=== PATIENT | female | born 1940 | race Caucasian/White ===

== ENCOUNTER 2019-01-13 10:30 | Inpatient (IN) | payer MEDICARE, BC ==
[2019-01-13 10:52] VITALS: BMI 36.9
[2019-01-13 11:52] LABS: Hemoglobin 12.3 g/dL (12.0-16.0); Mean Corpuscular HGB CONC 33.4 g/dL (32.0-36.0); Mean Platelet Volume 7.5 fL (7.4-10.4); Platelet Count 142 thou/uL (130-400); Red Blood Cell (RBC) Count 3.83 mill/uL (4.20-5.40); White Blood Cell (WBC) Count 6.1 thou/uL (4.8-10.8)
[2019-01-13 12:15] LABS: Anion Gap 11 mmol/L (10-20); BUN (Urea Nitrogen) 28 mg/dL (9.8-20.1); Calc. Creatinine Clearance 0 mL/min (70-130); Calcium 9.6 mg/dL (7.8-10.44); Carbon Dioxide 27 mmol/L (23-31); Chloride 104 mmol/L (98-107); Estimated GFR-MDRD 66; Glucose 161 mg/dL (83-110); Potassium 4.2 mmol/L (3.5-5.1); Sodium 138 mmol/L (136-145)
[2019-01-14] MEDS ORDERED: Albumin 5% 500 ML ONE (06:15)
[2019-01-14] MEDS ORDERED: Midazolam HCl 5 mg/5 ml Vial ONE (06:35)
[2019-01-14] MEDS ORDERED: Midazolam HCl 2 mg/2 ml Vial ONE (06:35)
[2019-01-14] MEDS ORDERED: Fentanyl 100 MCG/2 ML VIAL ONE (06:35)
[2019-01-14] MEDS ORDERED: Dexmedetomidine 200 MCG/2 ML VIAL ONE (06:35)
[2019-01-14] MEDS ORDERED: Vecuronium 10 MG VIAL ONE ×2 (06:35→13:02)
[2019-01-14] MEDS ORDERED: Heparin 10,000 UNITS/1 ML VIAL 30,000 UNITS in Sodium Chloride 0.9% 1,000 ML FS SCH (06:45)
[2019-01-14] MEDS ORDERED: Meclizine HCl 12.5 MG TAB PO PRN (07:35)
[2019-01-14] MEDS ORDERED: Indomethacin 25 mg Capsule PO PRN (07:35)
[2019-01-14] MEDS ORDERED: niCARdipine 25 MG in Sodium Chloride 0.9% 250 ML 250 ML IVPB PRN (07:36)
[2019-01-14] MEDS ORDERED: Morphine 2 MG/ML SYRINGE SLOW IVP PRN (07:36)
[2019-01-14] MEDS ORDERED: Acetaminophen 325 MG TAB PO PRN (07:36)
[2019-01-14] MEDS ORDERED: Promethazine HCl 25 MG/ML VIAL IM PRN (07:36)
[2019-01-14] MEDS ORDERED: Mag-Al 1200 mg/1200 mg/30 ML UDCUP PO PRN (07:36)
[2019-01-14] MEDS ORDERED: Fentanyl 100 MCG/2 ML VIAL SLOW IVP PRN (07:36)
[2019-01-14] MEDS ORDERED: Hetastarch 6% 500 ML 500 ML IVPB PRN (07:36)
[2019-01-14] MEDS ORDERED: Post-Op Insulin Drip Protocol IVPB ONE (07:36)
[2019-01-14] MEDS ORDERED: Ondansetron PF 4 MG/2 ML Vial IVP PRN (07:36)
[2019-01-14] MEDS ORDERED: hydrALAZINE 20 MG/ML VIAL SLOW IVP PRN (07:36)
[2019-01-14] MEDS ORDERED: Bisacodyl 5 MG TAB PO PRN (07:36)
[2019-01-14] MEDS ORDERED: Guaifenesin DM 100-10/5 ML UDCUP PO PRN (07:36)
[2019-01-14] MEDS ORDERED: Nitroglycerin 50 MG/250 ML BOT 250 ML IVPB PRN (07:36)
[2019-01-14] MEDS ORDERED: Norepinephrine 8 MG in Sodium Chloride 0.9% 250 ML 242 ML IVPB PRN (07:36)
[2019-01-14] MEDS ORDERED: Bisacodyl 10 MG SUPP PR PRN (07:36)
[2019-01-14] MEDS ORDERED: Insulin Regular 300 UNITS/3 ML VIAL ONE (08:13)
[2019-01-14] MEDS ORDERED: Dextrose 5% in Water 1,000 ML IV PRN (08:17)
[2019-01-14] MEDS ORDERED: Dextrose 50% Abboject 50 ML SYRINGE SLOW IVP PRN (08:17)
[2019-01-14] MEDS ORDERED: HUMULIN R 100 UNITS in Sodium Chloride 0.9% 100 ML IVPB SCH (08:17)
[2019-01-14] MEDS: Calcium Carbonate + Vit D 1 TAB PO SCH ×2 (11:08→19:53)
[2019-01-14] MEDS: Aspirin Chewable 81 MG TAB PO SCH (11:08)
[2019-01-14] MEDS: Brimonidine Tartrate 0.2% Ophth Soln 5 ml Bottle EA EYE SCH ×2 (11:08→19:55)
[2019-01-14] MEDS: Allopurinol 100 MG TAB PO SCH (11:08)
[2019-01-14] MEDS: Docusate 100 MG CAP PO SCH ×2 (11:09→19:54)
[2019-01-14] MEDS: Multivitamin W/ Minerals 1 TAB PO SCH (11:09)
[2019-01-14] MEDS: Timolol 0.5% Ophth Soln 5 ml Bottle EA EYE SCH ×2 (11:10→19:55)
[2019-01-14] MEDS ORDERED: CEFAZOLIN 1 GM VIAL ONE (12:18)
[2019-01-14] MEDS ORDERED: Heparin 30,000 units/30 ml VIAL ONE (13:02)
[2019-01-14] MEDS ORDERED: Mannitol 12.5 GM/50 ML ONE (13:02)
[2019-01-14] MEDS ORDERED: Calcium Chloride 1 GM/10 ML Abboject SYRINGE ONE (13:02)
[2019-01-14] MEDS ORDERED: DOPamine 400 MG/10 ML VIAL ONE (13:02)
[2019-01-14] MEDS ORDERED: Aminocaproic Acid 5 GM/20 ML VIAL ONE (13:02)
[2019-01-14] MEDS ORDERED: Magnesium 5 GM/10 ML VIAL ONE (13:02)
[2019-01-14] MEDS ORDERED: Protamine Sulfate 250 MG/25 ML VIAL ONE (13:02)
[2019-01-14] MEDS ORDERED: Ondansetron PF 4 MG/2 ML Vial ONE (13:02)
[2019-01-14] MEDS ORDERED: Potassium Chloride 60 MEQ/30 ML VIAL ONE (13:02)
[2019-01-14] MEDS ORDERED: Norepinephrine 4 MG/4 ML VIAL ONE (13:02)
[2019-01-14] MEDS ORDERED: PHENYLEPHRINE-NS 100 MCG/ML 10 ML SYRINGE ONE (13:02)
[2019-01-14] MEDS ORDERED: Sodium Bicarb 50 MEQ/50 ML VIAL ONE (13:02)
[2019-01-14] MEDS ORDERED: ePHEDrine 50 MG/ML VIAL ONE (13:02)
[2019-01-14] MEDS ORDERED: Thrombin 5000 UNITS/5 ML VIAL ONE (13:02)
[2019-01-14] MEDS ORDERED: Papaverine 60 MG/2 ML VIAL ONE (13:02)
[2019-01-14] MEDS ORDERED: Heparin 5,000 UNITS/ML VIAL ONE (13:02)
[2019-01-14] MEDS ORDERED: Dexamethasone 20 MG/5 ML VIAL ONE (13:02)
[2019-01-14] MEDS ORDERED: Lidocaine 2% PF 100 mg/5 ml Syringe ONE (13:02)
[2019-01-14] MEDS ORDERED: Nitroglycerin 50 MG/250 ML BOT ONE (13:02)
[2019-01-14] MEDS ORDERED: Cardioplegic Soln 1,000 ML BAG ONE (13:02)
[2019-01-14] MEDS ORDERED: Amiodarone 150 MG/3 ML VIAL ONE (13:38)
[2019-01-14 15:22] LABS: Actual Bicarbonate (HCO3a) 19.6 mEq/L (22-28); Base Excess (BEa) -5.6 mEq/L (-2.0 to +3.0); CO2 Tension 37.1 mmHg (35.0-45.0); Calcium, Ionized 1.06 mmol/L (1.12-1.30); Carboxyhemoglobin (COHb) 0.3 gm% (0.0-3.0); Hemoglobin (Hb) 9.8 g/dL (12.0-16.0); O2 Tension (PaO2) 163.9 mmHg (> 70.0); Potassium - ABG Lab 3.63 mmol/L (3.70-5.30); pH, Arterial 7.34 (7.35-7.45)
[2019-01-14 15:24] LABS: Puncture Site LINE
[2019-01-14 15:25] LABS: ALV-art Gradient 217.525 (0-20)
[2019-01-14 15:43] LABS: Hemoglobin 9.6 g/dL (12.0-16.0)
--- NOTE | 2019-01-14 15:44 | RAD ---
XR Chest 1 View Portable HISTORY: Respiratory failure. Post op open heart surgery COMPARISON: Previous day FINDINGS: Interval changes of median sternotomy are seen. There is an endotracheal tube with tip just above the level of the anitha. A left subclavian central line is seen with tip in the projection of the SVC. Mediastinal drain and left-sided chest tubes are present. No pneumothoraces or large effu sions are seen.
[2019-01-14 15:52] LABS: INR-International Normal Ratio 1.5; PTT 33.6 SEC (22.9-36.1); Prothrombin Time 18.2 SEC (12.0-14.7)
[2019-01-14 15:57] LABS: Potassium 3.7 mmol/L (3.5-5.1)
[2019-01-14] MEDS ORDERED: Amiodarone 450 MG, Admixture Fee 1 EACH in Dextrose 5% in Water 250 ML IVPB SCH (16:00)
[2019-01-14] MEDS: Sodium Chloride 0.9% 1,000 ML IV SCH ×2 (16:11→22:13)
[2019-01-14 17:01] LABS: Anion Gap 12 mmol/L (10-20); BUN (Urea Nitrogen) 22 mg/dL (9.8-20.1); Calc. Creatinine Clearance 110 mL/min (70-130); Calcium 7.3 mg/dL (7.8-10.44); Carbon Dioxide 19 mmol/L (23-31); Chloride 115 mmol/L (98-107); Estimated GFR-MDRD 85; Glucose 116 mg/dL (83-110); Potassium 3.7 mmol/L (3.5-5.1); Sodium 142 mmol/L (136-145)
[2019-01-14 17:31] LABS: Actual Bicarbonate (HCO3a) 19.4 mEq/L (22-28); Base Excess (BEa) -4.8 mEq/L (-2.0 to +3.0); Calcium, Ionized 1.06 mmol/L (1.12-1.30); Carboxyhemoglobin (COHb) 0.3 gm% (0.0-3.0); O2 Tension (PaO2) 122.6 mmHg (> 70.0); Potassium - ABG Lab 4.05 mmol/L (3.70-5.30); pH, Arterial 7.39 (7.35-7.45)
[2019-01-14 17:38] LABS: Puncture Site LINE
[2019-01-14] MEDS: Fentanyl 100 MCG/2 ML VIAL SLOW IVP PRN ×2 (17:51→21:27)
[2019-01-14] MEDS: Ketorolac Tromethamine 30 MG/ML VIAL IVP SCH (19:52)
[2019-01-14] MEDS: HYDROcodone/Acetaminophen 5/325 mg Tablet PO PRN (19:53)
[2019-01-14] MEDS: Insulin Regular 300 UNITS/3 ML VIAL SC PRN (20:19)
[2019-01-14] MEDS: Potassium Chloride 20 MEQ/100 ML PREMIX BAG IVPB PRN (20:19)
--- NOTE | 2019-01-14 21:42 | OP ---
DATE OF PROCEDURE: 01/14/2019 PROCEDURES PERFORMED: Coronary artery bypass grafting x5, left internal mammary artery to the LAD, separate reverse greater saphenous vein grafts from the aorta to the first obtuse marginal and from aorta to the diagonal, and sequential reverse greater saphenous vein graft from aorta to the distal RCA to the PDA. PREOPERATIVE DIAGNOSIS: Coronary artery disease. POSTOPERATIVE DIAGNOSIS: Coronary artery disease. ANESTHESIA: General endotracheal anesthesia. INDICATIONS: The patient is a 78-year-old diabetic woman with a two or three month history of some mild dyspnea on exertion and in retrospect, she has had somewhat easy fatigability for about a year. Stress testing showed apical and lateral ischemia, but good LV function. Cardiac catheterization showed severe 3-vessel coronary artery disease and she is now taken to the operating room for revascularization. FINDINGS: Pump time 129 minutes. Cross-clamp time 73 minutes. Good quality TETE with excellent flow. Good quality saphenous vein. The vein from the thigh and proximal calf was slightly large, but of good quality. At mid calf, it became slightly small and slightly thin walled. The LAD was about 1.5 mm vessel as was the diagonal. The OM1 was 1.5 to 2 mm. The PDA was about 1.5 mm. The RCA diffuse disease that was about a 3 mm vessel. NARRATIVE REPORT: After informed consent was obtained, the patient was taken to the operating room and placed in supine position on the operating table. After the induction of general anesthesia, the patient's greater saphenous vein was ultrasonographically mapped and marked. It was difficult to follow much below the knee. The patient's left upper chest was prepped and draped in sterile fashion and she was placed in Trendelenburg. A left subclavian central line was placed by Seldinger technique. All 3 ports aspirated and flushed easily. The line was secured. The patient's torso groins, lower extremities and left upper extremity were prepped and draped in sterile fashion. The saphenous vein was exposed just above the left knee and then endoscopically harvested from there up to the groin and down from mid to distal calf. There was bleeding from one of the large proximal side branches anteriorly near the groin that obscured adequate visualization for complete harvesting in the thigh. An incision was made parallel to the left groin crease using a scalpel and electrocautery to expose the vein. It was ligated and divided near the saphenofemoral junction and bleeding side branch was identified and doubly clipped. Even after attempting to evacuate blood from the wound, it was not feasible to adequately expose the entire length of the vein through those two incisions. The port site was extended a few centimeters proximally to facilitate exposure to allow for ligation and division of some branches. It could not be identified during the endoscopic harvest because of blood in the dissection bed. Courtland was then taken down to the calf. Likewise, bleeding into the wound prevented adequate visualization of the vein for distal transection point that was exposed through a small incision and ligated and divided. Side branch just below the knee required open division in order to identify. The vein was prepared for use as a graft and those harvest sites were closed in layers of subcutaneous and subcuticular Vicryl. A median sternotomy was performed. An attempt was made to do an extrapleural exposure with the pleura was quite thin and it readily became apparent that would need to be abandoned. The pleura was opened widely and the left TETE was mobilized as a skeletonized in-situ graft from the level of the xiphoid to just proximal to the subclavian vein. Much of the mammary is quite tortuous and rather large. The patient was heparinized and the mammary ligated and divided distally and papaverine solution was instilled intraluminally and the mammary bed was inspected for hemostasis. TETE retractor was placed in a Grant retractor. The pericardium was opened and marsupialized. The aorta was palpated and was soft. A double concentric pursestring of 2-0 Ethibond was placed in ascending aorta just beyond the pericardial reflection and a single pursestring was placed in the right atrial appendage. Aortic and venous cannulae were inserted and secured by their pursestrings. Cardiopulmonary bypass was instituted and the patient was systemically cooled. The heart was examined. The vessels to be bypassed were identified. A longitudinal slit was made in the pericardium anterior to the left phrenic nerve, through which the mammary could be passed. An aortic cross-clamp was applied and cardioplegia was administered through an aortic root needle while cardioplegia was infusing. A 36-Polish chest tube was placed in the left pleural space to bring it out through a separate incision and securing it to the skin with suture. When arrest been achieved, attention was turned to the distal right coronary system. The mid PDA beyond the palpable plaque was opened and reverse greater saphenous vein was anastomosed there end-to-side with running Prolene suture and the anastomosis tested by flushing cold saline down the graft. The right coronary was then opened just proximal to the crux and a corresponding venotomy was made in the PDA graft. A [id number] anastomosis was then constructed between the two and tested with cardioplegia. Separate end-to-side anastomoses of the vein to the OM1 and to the diagonal were then made. The mammary was then anastomosed to the LAD with running 7-0 Prolene and tacked to the epicardium. The aortic cross-clamp was placed with partial occluding clamp and few aortotomies remained in the ascending aorta with a scalpel and punch. The right coronary system graft was brought up along the AV groove and anastomosed to the more proximal aortotomy and that anastomosis marked with small hemoclip. The OM graft was anastomosed to the more distal aortotomy. Backbleeding from the RCA graft was used to allow for distention of the graft. Venotomy was made in the watson of the OM proximal anastomosis and the diagonal graft was anastomosed to it. A small hemoclip was used to karla those anastomoses. A posterior pericardial drain was brought out through a separate incision and secured with suture. Right atrial and right ventricular temporary epicardial pacing wires were placed. The patient was then easily from cardiopulmonary bypass. Aortic and venous cannulae were removed and the pursestring secured. Protamine was administered. When hemostasis was adequate, anterior mediastinal drain was placed. The mediastinal fat was tacked back together to cover up. They were in the proximal portions of the vein grafts and the inferior medial aspects. The pericardium was loosely tacked together to avoid excessive retraction of the pericardium. Cut surfaces of the sternum were treated with platelet-rich GPS and vancomycin paste. The sternum was reapproximated with #7 stainless steel wires. The soft tissues were irrigated and treated with platelet-poor GPS, #1 Vicryl was used to close the fascia over the wires, 2-0 Vicryl was used to reapproximate subcutaneous tissue, and 3-0 Vicryl subcuticular suture was used for the skin. Because of the patient's body habitus and need to extend the sternotomy incision through a rather generous intertriginous fold in order to expose the distal sternum, the skin closure was reinforced with running nylon. The wounds were dressed and the patient was taken to the intensive care unit in stable condition. Job ID: [id number]
[2019-01-15 00:03] LABS: Hemoglobin 9.2 g/dL (12.0-16.0)
[2019-01-15] MEDS: Insulin Regular 300 UNITS/3 ML VIAL SC PRN ×5 (00:09→22:05)
[2019-01-15 00:19] LABS: Potassium 4.3 mmol/L (3.5-5.1)
[2019-01-15] MEDS ORDERED: Amiodarone In Dextrose 200 ML IVPB SCH (00:45)
[2019-01-15] MEDS: Ketorolac Tromethamine 30 MG/ML VIAL IVP SCH ×3 (00:47→14:22)
[2019-01-15] MEDS: Fentanyl 100 MCG/2 ML VIAL SLOW IVP PRN ×2 (02:16→04:46)
--- NOTE | 2019-01-15 03:32 | CON ---
DATE OF CONSULTATION: 01/14/2019 HISTORY OF PRESENT ILLNESS: Nataliya Buckley is a pleasant 78-year-old female, who underwent coronary artery bypass grafting today. I was consulted because of her re-admission to critical care unit with mechanical ventilation. She had a wonderfully pleasant family at the bedside. She has never been hospitalized here before. I do not find a history and physical in the computer. She has no complaints. PAST MEDICAL HISTORY: Unremarkable other than a polypectomy from the past. PAST SURGICAL HISTORY: I reviewed the old computer database, and there are no records of procedures in the past. FAMILY HISTORY: Unremarkable. SOCIAL HISTORY: She is a nonsmoker and nondrinker per family. ALLERGIES: SHE HAS NO REPORTED ALLERGIES. REVIEW OF SYSTEMS: 10 point review of systems completed, not obtainable. PHYSICAL EXAMINATION: GENERAL: Nataliya Buckley is a pleasant 78-year-old female, who underwent coronary artery bypass grafting today VITAL SIGNS: Heart rate is in the 80s, blood pressure 138/72, and respiratory rate 24. HEAD: Unremarkable. NECK: Unremarkable. LUNGS: Clear. HEART: Regular rhythm. S1 and S2 are normal. ABDOMEN: Soft and nontender. EXTREMITIES: Without clubbing, cyanosis, or edema. LABORATORY DATA: White count 6.1. Yesterday, hemoglobin is 12.3. Today, hemoglobin is 9.6. Sodium 142, potassium 3.7, chloride 115, bicarb 19, BUN 22, creatinine 0.6, and glucose 116. Last blood gas; pH of 7.39, CO2 of 33, and PO2 of 122 on CPAP. IMPRESSION: Status post coronary artery bypass grafting. Postop chest x-ray shows no pulmonary edema. I would think she would wean per protocol. We will follow along with the other physicians caring for her. The ventilator has been adjusted. Job ID: [id number] Critical care time 30 minutes MTDD
[2019-01-15 04:59] LABS: Anion Gap 14 mmol/L (10-20); BUN (Urea Nitrogen) 25 mg/dL (9.8-20.1); Calc. Creatinine Clearance 93 mL/min (70-130); Carbon Dioxide 17 mmol/L (23-31); Chloride 115 mmol/L (98-107); Estimated GFR-MDRD 70; Glucose 114 mg/dL (83-110); Sodium 142 mmol/L (136-145)
[2019-01-15 05:08] LABS: #Lymphocytes 0.5 thou/uL (1.20-3.40); #Monocytes 0.7 thou/uL (0.11-0.59); #Neutrophils 6.3 thou/uL (1.40-6.50); %Eosinophils 0.2 % (0.0-10.0); %Lymphocytes 6.8 % (21.0-51.0); %Monocytes 9.8 % (0.0-10.0); %Neutrophils 83.2 % (42.0-75.0); Hemoglobin 8.5 g/dL (12.0-16.0); Mean Corpuscular HGB CONC 33.5 g/dL (32.0-36.0); Mean Corpuscular Hemoglobin 32.4 pg (27.0-31.0); Mean Corpuscular Volume 96.9 fL (78.0-98.0); Mean Platelet Volume 7.8 fL (7.4-10.4); Platelet Count 111 thou/uL (130-400); Platelet Morphology Comment Appears Decreased; RBC Distribution Width 12.3 % (11.5-14.5); Red Blood Cell (RBC) Count 2.63 mill/uL (4.20-5.40); White Blood Cell (WBC) Count 7.6 thou/uL (4.8-10.8)
[2019-01-15] MEDS: Potassium Chloride 20 MEQ/100 ML PREMIX BAG IVPB PRN (05:53)
[2019-01-15] MEDS ORDERED: Furosemide 40 MG/4 ML VIAL SLOW IVP SCH (06:00)
[2019-01-15] MEDS ORDERED: Labetalol HCl 100 MG/20 ML VIAL ONE (07:33)
[2019-01-15] MEDS: HYDROcodone/Acetaminophen 5/325 mg Tablet PO PRN ×4 (07:48→20:33)
[2019-01-15] MEDS: Iron Polysaccharides Complex 150 MG CAP PO SCH ×2 (08:42→19:43)
[2019-01-15] MEDS: Allopurinol 100 MG TAB PO SCH (08:45)
[2019-01-15] MEDS: Calcium Carbonate + Vit D 1 TAB PO SCH ×2 (08:45→20:34)
[2019-01-15] MEDS: Multivitamin W/ Minerals 1 TAB PO SCH (08:46)
[2019-01-15] MEDS: Docusate 100 MG CAP PO SCH ×2 (08:46→20:34)
[2019-01-15] MEDS: Aspirin Chewable 81 MG TAB PO SCH (08:46)
[2019-01-15] MEDS: Metoprolol Tartrate 25 MG TAB PO SCH ×2 (08:47→20:34)
[2019-01-15] MEDS: Brimonidine Tartrate 0.2% Ophth Soln 5 ml Bottle EA EYE SCH ×2 (08:49→20:42)
[2019-01-15] MEDS ORDERED: Amiodarone 200 MG TAB PO SCH (09:00)
[2019-01-15] MEDS: Timolol 0.5% Ophth Soln 5 ml Bottle EA EYE SCH ×2 (09:19→20:31)
--- NOTE | 2019-01-15 09:22 | PDOC.CPN ---
- Subjective Date: 01/15/19 Time: 09:22 Interval history: The pt seen and examined. No overnight events. No cardiac complaints. - Objective Allergies/Adverse Reactions: Allergies Allergy/AdvReac Type Severity Reaction Status Date / Time No Known Allergies Allergy Unverified 01/13/19 10:48 Visit Medications: Current Medications Acetaminophen (Tylenol) 650 mg PO Q6H PRN PRN Reason: Headache/Fever Or Mild Pain Hydrocodone Bitart/Acetaminophen ([place] 5/325) 1 tab PO Q4H PRN PRN Reason: Moderate Pain (4-6) Hydrocodone Bitart/Acetaminophen ([place] 5/325) 2 tab PO Q4H PRN PRN Reason: Severe Pain (7-10) Last Admin: 01/15/19 07:48 Dose: 2 tab Al Hydroxide/Mg Hydroxide (Maalox) 30 ml PO Q4H PRN PRN Reason: Indigestion Albuterol/Ipratropium (Duoneb) 3 ml NEB [id number] PRN PRN Reason: SHORTNESS OF BREATH Allopurinol (Zyloprim) 100 mg PO DAILY [facility] [place] Last Admin: 01/15/19 08:45 Dose: 100 mg Amiodarone HCl (Cordarone) 200 mg PO BID [facility] [place] Last Admin: 01/15/19 08:47 Dose: 200 mg Aspirin (Aspirin Chewable) 81 mg PO DAILY [facility] [place] Last Admin: 01/15/19 08:46 Dose: 81 mg Bisacodyl (Dulcolax) 10 mg PO Q12H PRN PRN Reason: Constipation Bisacodyl (Dulcolax) 10 mg OK Q12H PRN PRN Reason: Constipation Brimonidine Tartrate (Alphagan 0.2% Oph Soln) 1 drop EA EYE BID [facility] [place] Last Admin: 01/15/19 08:49 Dose: 1 drop Calcium/Vitamin D (Caltrate 600 + Vit D) 2 tab PO BID [facility] [place] Last Admin: 01/15/19 08:45 Dose: 2 tab Dextrose/Water (Dextrose 50%) 25 gm SLOW IVP PRN PRN PRN Reason: PER HYPOGLYCEMIC PROTOCOL Docusate Sodium (Colace) 100 mg PO BID [facility] [place] Last Admin: 01/15/19 08:46 Dose: 100 mg Fentanyl (Sublimaze) 25 mcg SLOW IVP Q2H PRN PRN Reason: Moderate Pain (4-6) Stop: 01/16/19 07:37 Fentanyl (Sublimaze) 50 mcg SLOW IVP Q2H PRN PRN Reason: Severe Pain (7-10) Stop: 01/16/19 07:37 Last Admin: 01/15/19 04:46 Dose: 50 mcg Furosemide (Lasix) 40 mg SLOW IVP 0600,1400 YENY Stop: 01/15/19 14:01 Last Admin: 01/15/19 08:41 Dose: 40 mg Glucagon (Glucagon) 1 mg SC PRN PRN PRN Reason: PER HYPOGLYCEMIC PROTOCOL Guaifenesin/Dextromethorphan (Robitussin Dm) 15 ml PO Q4H PRN PRN Reason: Cough Hydralazine HCl (Apresoline) 10 mg SLOW IVP Q6H PRN PRN Reason: To Maintain SBP< 140mmHG Norepinephrine Bitartrate 8 mg (/ Sodium Chloride) 250 mls @ 0 mls/hr IVPB PRN PRN; Protocol PRN Reason: To maintain SBP > 90 mmHG Nicardipine HCl 25 mg/ Sodium (Chloride) 260 mls @ 0 mls/hr IVPB INF PRN; Protocol PRN Reason: To Maintain SBP< 140mmHG Nitroglycerin/Dextrose (Nitroglycerin 50 Mg/250 Ml Bot) 250 mls @ 0 mls/hr IVPB PRN PRN; Protocol PRN Reason: To Maintain SBP< 140mmHG Sodium Chloride (Normal Saline 0.9%) 1,000 mls @ 75 mls/hr IV .[id number] [facility] [place] Last Admin: 01/14/19 22:13 Dose: Not Given Insulin Human Regular 100 (units/ Sodium Chloride) 101 mls @ 0 mls/hr IVPB INF YENY; Protocol Dextrose/Water (D5w) 1,000 mls @ 0 mls/hr IV INF PRN PRN Reason: PRN HYPOGLYCEMIC PROTOCOL Indomethacin (Indocin) 25 mg PO BID PRN PRN Reason: LEG PAIN Insulin Human Regular (Humulin R) 0 units SC Q4H PRN; Protocol PRN Reason: POST OP SLIDING SCALE Last Admin: 01/15/19 00:09 Dose: 2 unit Iron/Minerals/Multivitamins (Theragran M) 1 tab PO DAILY [facility] [place] Last Admin: 01/15/19 08:46 Dose: 1 tab Ketorolac Tromethamine (Toradol) 15 mg IVP 0200,0800,1400,2000 [facility] [place] Stop: 01/15/19 14:01 Last Admin: 01/15/19 08:42 Dose: 15 mg Meclizine HCl (Antivert) 12.5 mg PO BID PRN PRN Reason: Vertigo Metoprolol Tartrate (Lopressor) 12.5 mg PO BID [facility] [place] Last Admin: 01/15/19 08:47 Dose: 12.5 mg Mirabegron (Myrbetriq Er) 50 mg PO QAM [facility] [place] Last Admin: 01/15/19 08:50 Dose: 50 mg Morphine Sulfate (Morphine) 2 mg SLOW IVP Q15MIN PRN PRN Reason: Severe Pain (7-10) Ondansetron HCl (Zofran) 4 mg IVP Q6H PRN PRN Reason: Nausea/Vomiting Last Admin: 01/14/19 19:53 Dose: 4 mg Pantoprazole Sodium (Protonix) 40 mg PO DAILY [facility] [place] Last Admin: 01/15/19 08:46 Dose: 40 mg Polysaccharide Iron Complex (Niferex) 150 mg PO BID[facility] Last Admin: 01/15/19 08:42 Dose: 150 mg Potassium Chloride (Kcl) 20 meq IVPB PRN PRN PRN Reason: K level </= 4.0 Last Admin: 01/15/19 05:53 Dose: 20 meq Promethazine HCl (Phenergan) 6.25 mg IM Q4H PRN PRN Reason: Nausea/Vomiting Sodium Chloride (Flush - Normal Saline) 10 ml IVF Q12HR [facility] [place] Last Admin: 01/15/19 09:17 Dose: Not Given Timolol Maleate (Timoptic 0.5% Ophth Soln) 1 drop EA EYE BID [facility] [place] Last Admin: 01/15/19 09:19 Dose: 1 drop Vital Signs & Weight: Vital Signs Pulse BP Pulse Ox 01/15/19 09:19 94 102/63 01/15/19 08:08 96 01/15/19 07:42 94 Weight 221 lb 9.033 oz - Physical Exam General: alert & oriented x3 HEENT: mucus membranes moist Cardiac: regular rate and rhythm, S1/S2 Lungs: clear to auscultation, decreased breath sounds Neuro: cranial nerve 2-12 intact Skin: clear Musculoskeletal: decreased range of motion - Labs Result Diagrams: 01/15/19 04:25 09/06/19 04:25 - Telemetry Sinus rhythms and dysrhythmias: sinus bradycardia (< 50 bpm) - Assessment/Plan Assessment/Plan: 1. CAD with s/p CABG x5 on 01/14/2019 with HARTMAN-LAD, RGSV-1st OM, RGSV-diag, RGSV-RCA and PDA - stable with Metoprolol 12.5mg BID, ASA, 2. Post-op Afib - converted back to SR with Amiodarone drip which will be changed to PO 200mg BID from this AM. HTN - On Levophed for hypotension; 3. HLD - will start Lipitor 20mg from this PM 4. DM type 2 - 5. IBS MAR reviewed Pt. seen and eval. y me. I agree with the A/P by the [employer]. No cardiac complaints just soreness post op. Chest clear. RRR. Change from IV to po amio.would increase to tid for 1-2 weeks and then decrease to 200 qd.
--- NOTE | 2019-01-15 09:26 | RAD ---
CHEST 1 VIEW: Date: 01/15/19 INDICATION: Status post open heart surgery. COMPARISON: Prior exam dated 01/14/19. IMPRESSION: The patient has been intervally extubated. Left subclavian central venous catheter and left-sided tho racostomy tube are unchanged. No pneumothorax is evident. Cardiomegaly and pulmonary vascular congest ion persists. No pneumothorax is evident. POS: OFF
[2019-01-15 10:34] LABS: Actual Bicarbonate (HCO3a) 22.9 mEq/L (22-28); Analyzer IN Cardio OR; Base Excess (BEa) -0.3 mEq/L (-2.0 to +3.0); CO2 Tension 32.8 mmHg (35.0-45.0); Calcium, Ionized 1.13 mmol/L (1.12-1.30); Carboxyhemoglobin (COHb) 0.3 gm% (0.0-3.0); Hemoglobin (Hb) 11.4 g/dL (12.0-16.0); O2 Tension (PaO2) 367.2 mmHg (> 70.0); Potassium - ABG Lab 3.96 mmol/L (3.70-5.30); pH, Arterial 7.46 (7.35-7.45)
[2019-01-15 10:34] LABS: Actual Bicarbonate (HCO3a) 24.9 mEq/L (22-28); Analyzer IN Cardio OR; Base Excess (BEa) -0.6 mEq/L (-2.0 to +3.0); CO2 Tension 44.4 mmHg (35.0-45.0); Calcium, Ionized 1.15 mmol/L (1.12-1.30); Carboxyhemoglobin (COHb) 0.3 gm% (0.0-3.0); Hemoglobin (Hb) 11.4 g/dL (12.0-16.0); O2 Tension (PaO2) 372.3 mmHg (> 70.0); Potassium - ABG Lab 3.78 mmol/L (3.70-5.30); pH, Arterial 7.37 (7.35-7.45)
[2019-01-15 10:35] LABS: Actual Bicarbonate (HCO3a) 24.9 mEq/L (22-28); Analyzer IN Cardio OR; Base Excess (BEa) -0.5 mEq/L (-2.0 to +3.0); CO2 Tension 43.5 mmHg (35.0-45.0); Calcium, Ionized 1.14 mmol/L (1.12-1.30); Carboxyhemoglobin (COHb) 0.3 gm% (0.0-3.0); Hemoglobin (Hb) 11.5 g/dL (12.0-16.0); O2 Tension (PaO2) 420.7 mmHg (> 70.0); Potassium - ABG Lab 3.98 mmol/L (3.70-5.30); pH, Arterial 7.38 (7.35-7.45)
[2019-01-15 10:36] LABS: Analyzer IN Cardio OR; Base Excess (BEa) -0.1 mEq/L (-2.0 to +3.0); Calcium, Ionized 0.99 mmol/L (1.12-1.30); Carboxyhemoglobin (COHb) 0.3 gm% (0.0-3.0); Hemoglobin (Hb) 7.9 g/dL (12.0-16.0); Potassium - ABG Lab 5.27 mmol/L (3.70-5.30); pH, Arterial 7.44 (7.35-7.45)
[2019-01-15 10:39] LABS: Actual Bicarbonate (HCO3v) 25 mEq/L (22-28); Analyzer IN Cardio OR; Base Excess 0.2 mEq/L (-2.0 to +3.0); Calcium, Ionized 1.02 mmol/L (1.16-1.32); Chloride (ABG LAB) 107 mmol/L (98-106); Hemoglobin (Hb) 7.2 g/dL (11.7-16.1); Potassium - ABG Lab 3.84 mmol/L (3.70-5.30); Sodium 136.9 mmol/L (133-146); pH (venous) 7.41 (7.32-7.43)
[2019-01-15 10:39] LABS: Actual Bicarbonate (HCO3a) 24.1 mEq/L (22-28); Analyzer IN Cardio OR; Base Excess (BEa) 0.2 mEq/L (-2.0 to +3.0); CO2 Tension 35.6 mmHg (35.0-45.0); Calcium, Ionized 0.99 mmol/L (1.12-1.30); Carboxyhemoglobin (COHb) 0.1 gm% (0.0-3.0); Hemoglobin (Hb) 7.1 g/dL (12.0-16.0); O2 Tension (PaO2) 459.5 mmHg (> 70.0); Potassium - ABG Lab 3.89 mmol/L (3.70-5.30); pH, Arterial 7.45 (7.35-7.45)
[2019-01-15 10:40] LABS: Puncture Site ALINE
[2019-01-15 10:40] LABS: Analyzer IN Cardio OR; Base Excess (BEa) -0.1 mEq/L (-2.0 to +3.0); CO2 Tension 36.3 mmHg (35.0-45.0); Calcium, Ionized 1.21 mmol/L (1.12-1.30); Carboxyhemoglobin (COHb) 0.5 gm% (0.0-3.0); Hemoglobin (Hb) 7.1 g/dL (12.0-16.0); O2 Tension (PaO2) 431.5 mmHg (> 70.0); Potassium - ABG Lab 3.94 mmol/L (3.70-5.30); pH, Arterial 7.44 (7.35-7.45)
[2019-01-15 10:41] LABS: Puncture Site ALINE
[2019-01-15 10:41] LABS: Puncture Site ALINE
[2019-01-15 10:42] LABS: Puncture Site ALINE
[2019-01-15 10:42] LABS: O2 Tension (PaO2) 533.8 mmHg (> 70.0); Puncture Site ALINE
[2019-01-15 10:43] LABS: Puncture Site ALINE
[2019-01-15 10:44] LABS: Actual Bicarbonate (HCO3a) 19.2 mEq/L (22-28); Analyzer IN Cardio OR; Base Excess (BEa) -5.2 mEq/L (-2.0 to +3.0); CO2 Tension 33.5 mmHg (35.0-45.0); Calcium, Ionized 1.12 mmol/L (1.12-1.30); Carboxyhemoglobin (COHb) 0.3 gm% (0.0-3.0); Hemoglobin (Hb) 10.8 g/dL (12.0-16.0); O2 Tension (PaO2) 107.4 mmHg (> 70.0); Potassium - ABG Lab 3.76 mmol/L (3.70-5.30); Puncture Site ALINE; pH, Arterial 7.38 (7.35-7.45)
[2019-01-15] MEDS: Sodium Chloride 0.9% 1,000 ML IV SCH (10:45)
[2019-01-15] MEDS ORDERED: Albumin 25% 25 GM/100 ML BOT IVPB SCH (10:45)
--- NOTE | 2019-01-15 10:55 | EKG ---
Test Reason : Blood Pressure : / mmHG Vent. Rate : 082 BPM Atrial Rate : 082 BPM P-R Int : 136 ms QRS Dur : 116 ms QT Int : 404 ms P-R-T Axes : 004 007 009 degrees QTc Int : 472 ms Normal sinus rhythm Right bundle branch block -or- right ventricular hypertrophy Low voltage QRS Nonspecific T wave abnormality Prolonged QT Abnormal ECG Confirmed by JOSE ROBERTO CALI ([id number]) on 01/15/2019 10:55:30 AM Referred By: Confirmed By:JOSE ROBERTO CALI
--- NOTE | 2019-01-15 13:05 | PRG ---
DATE OF SERVICE: 01/15/2019 SUBJECTIVE: Nataliya Buckley has no complaints. OBJECTIVE: VITAL SIGNS: Stable. Heart rate is 94, blood pressure 102/63, oximetry is 96% on room air. GENERAL: She is extubated. LUNGS: Clear. HEART: Regular rhythm. ABDOMEN: Soft. She is on a tiny dose of Levophed. We have given her 25% albumin, which probably will lead to weaning of the Levophed. LABORATORY DATA: White count 7.6, hemoglobin 8.5, platelets 111,000. Sodium 142, potassium 4, chloride 115, bicarb 17, BUN 25, creatinine 0.79. IMPRESSION: 1. Status post coronary artery bypass grafting. 2. Hyperchloremic acidosis, likely secondary to volume infusions. She clinically appears stable. She really is not going to tolerate Lasix at this point given her hypotension. Albumin hopefully will help with her blood pressure. Job ID: [id number]
[2019-01-15] MEDS: Amiodarone 200 MG TAB PO SCH ×2 (14:22→20:35)
[2019-01-15] MEDS: Atorvastatin Calcium 20 MG TAB PO SCH (20:34)
[2019-01-15] MEDS: Enoxaparin Sodium 40 MG/0.4 ML SYRINGE SC SCH (20:35)
[2019-01-16] MEDS: HYDROcodone/Acetaminophen 5/325 mg Tablet PO PRN ×4 (01:46→23:14)
[2019-01-16] MEDS: Sodium Chloride 0.9% 1,000 ML IV SCH ×2 (01:48→15:06)
[2019-01-16 06:34] LABS: #Eosinphils 0.1 thou/uL (0.0-0.7); #Lymphocytes 1.2 thou/uL (1.20-3.40); #Monocytes 0.9 thou/uL (0.11-0.59); #Neutrophils 7.1 thou/uL (1.40-6.50); %Basophils 0.1 % (0.0-1.0); %Eosinophils 0.6 % (0.0-10.0); %Lymphocytes 13.3 % (21.0-51.0); %Monocytes 9.4 % (0.0-10.0); %Neutrophils 76.7 % (42.0-75.0); Hemoglobin 8.3 g/dL (12.0-16.0); Mean Corpuscular HGB CONC 33.6 g/dL (32.0-36.0); Mean Corpuscular Hemoglobin 32.7 pg (27.0-31.0); Mean Corpuscular Volume 97.4 fL (78.0-98.0); Mean Platelet Volume 7.7 fL (7.4-10.4); Platelet Count 116 thou/uL (130-400); RBC Distribution Width 12.7 % (11.5-14.5); Red Blood Cell (RBC) Count 2.54 mill/uL (4.20-5.40); White Blood Cell (WBC) Count 9.3 thou/uL (4.8-10.8)
[2019-01-16 06:52] LABS: Anion Gap 11 mmol/L (10-20); BUN (Urea Nitrogen) 29 mg/dL (9.8-20.1); Calc. Creatinine Clearance 85 mL/min (70-130); Calcium 8.6 mg/dL (7.8-10.44); Carbon Dioxide 21 mmol/L (23-31); Chloride 109 mmol/L (98-107); Estimated GFR-MDRD 63; Glucose 117 mg/dL (83-110); Potassium 4.3 mmol/L (3.5-5.1); Sodium 137 mmol/L (136-145)
[2019-01-16] MEDS: Insulin Regular 300 UNITS/3 ML VIAL SC PRN ×3 (07:09→19:59)
--- NOTE | 2019-01-16 07:35 | RAD ---
EXAM: Portable chest PROVIDED CLINICAL HISTORY: Post open heart COMPARISON: 01/25/2019 FINDINGS: Significant interval change with respect to the prior examination is not apparent. IMPRESSION: As above.
--- NOTE | 2019-01-16 08:59 | PRG ---
DATE OF SERVICE: 01/16/2019 SUBJECTIVE: Ms. Buckley is sitting up in the chair, doing well. No complaints. OBJECTIVE: VITAL SIGNS: Her blood pressure is 100/60, pulse is 80. LUNGS: Clear. CARDIAC: Normal S1. Normal S2. ASSESSMENT: Status post bypass surgery, doing well. PLAN: Continue supportive care. The patient is doing well. Job ID: [id number]
--- NOTE | 2019-01-16 09:24 | PRG ---
DATE OF SERVICE: 01/16/2019 SUBJECTIVE: She is sitting up in chair; has her chest tube still in place. She feels okay. OBJECTIVE: VITAL SIGNS: Temperature 99.7, pulse 96, blood pressure 100/62, and O2 saturation 94%. HEENT: Unremarkable. NECK: No adenopathy. No JVD. CHEST: Clear. CARDIAC: S1, S2. Regular. ABDOMEN: Soft. EXTREMITIES: No edema. IMAGING: Chest x-ray looks fairly clear. LABORATORY DATA: Sodium 137, potassium 4.3, BUN 29, creatinine 0.8. Glucose 117. ASSESSMENT: 1. Status post coronary artery bypass graft. 2. Weaned off Levophed this morning. PLAN: Hopefully tube is out later this morning and able to transfer to the floor after that. Job ID: [id number]
[2019-01-16] MEDS: Calcium Carbonate + Vit D 1 TAB PO SCH ×2 (09:27→20:01)
[2019-01-16] MEDS: Multivitamin W/ Minerals 1 TAB PO SCH (09:27)
[2019-01-16] MEDS: Amiodarone 200 MG TAB PO SCH ×3 (09:28→20:02)
[2019-01-16] MEDS: Docusate 100 MG CAP PO SCH ×2 (09:28→20:01)
[2019-01-16] MEDS: Aspirin Chewable 81 MG TAB PO SCH (09:29)
[2019-01-16] MEDS: Timolol 0.5% Ophth Soln 5 ml Bottle EA EYE SCH ×2 (09:29→20:02)
[2019-01-16] MEDS: Allopurinol 100 MG TAB PO SCH (09:29)
[2019-01-16] MEDS: Brimonidine Tartrate 0.2% Ophth Soln 5 ml Bottle EA EYE SCH ×2 (09:30→20:30)
[2019-01-16] MEDS: Iron Polysaccharides Complex 150 MG CAP PO SCH ×2 (09:31→18:26)
[2019-01-16] MEDS: Metoprolol Tartrate 25 MG TAB PO SCH ×2 (09:32→20:02)
[2019-01-16] MEDS: Amiodarone 450 MG in Dextrose 5% in Water 250 ML IVPB SCH (11:42)
[2019-01-16] MEDS: Senokot 8.6 MG TAB PO SCH (20:01)
[2019-01-16] MEDS: Enoxaparin Sodium 40 MG/0.4 ML SYRINGE SC SCH (20:01)
[2019-01-16] MEDS: Atorvastatin Calcium 20 MG TAB PO SCH (20:01)
[2019-01-16] MEDS: Cepastat Lozenges 1 LOZ PO PRN (20:04)
[2019-01-17] MEDS: Cepastat Lozenges 1 LOZ PO PRN ×2 (01:29→15:07)
[2019-01-17] MEDS: Sodium Chloride 0.9% 1,000 ML IV SCH (06:38)
[2019-01-17] MEDS: HYDROcodone/Acetaminophen 5/325 mg Tablet PO PRN ×3 (06:38→23:10)
[2019-01-17] MEDS: Insulin Regular 300 UNITS/3 ML VIAL SC PRN ×4 (06:46→21:32)
[2019-01-17 06:56] LABS: #Eosinphils 0.1 thou/uL (0.0-0.7); #Lymphocytes 1.1 thou/uL (1.20-3.40); #Monocytes 0.5 thou/uL (0.11-0.59); %Basophils 0.1 % (0.0-1.0); %Eosinophils 1.9 % (0.0-10.0); %Lymphocytes 16.3 % (21.0-51.0); %Monocytes 7.5 % (0.0-10.0); %Neutrophils 74.2 % (42.0-75.0); Mean Corpuscular Hemoglobin 32.2 pg (27.0-31.0); Mean Corpuscular Volume 97.6 fL (78.0-98.0); Mean Platelet Volume 7.2 fL (7.4-10.4); Platelet Count 121 thou/uL (130-400); RBC Distribution Width 12.6 % (11.5-14.5); Red Blood Cell (RBC) Count 2.48 mill/uL (4.20-5.40); White Blood Cell (WBC) Count 6.8 thou/uL (4.8-10.8)
[2019-01-17 07:13] LABS: Anion Gap 12 mmol/L (10-20); BUN (Urea Nitrogen) 28 mg/dL (9.8-20.1); Calc. Creatinine Clearance 101 mL/min (70-130); Calcium 8.6 mg/dL (7.8-10.44); Carbon Dioxide 20 mmol/L (23-31); Chloride 109 mmol/L (98-107); Estimated GFR-MDRD 69; Glucose 147 mg/dL (83-110); Sodium 137 mmol/L (136-145)
--- NOTE | 2019-01-17 09:14 | PRG ---
DATE OF SERVICE: 01/17/2019 SUBJECTIVE: Ms. Buckley is going in and out of atrial fibrillation. When she goes in atrial fibrillation, it is a rapid rate of about 120. She has been on an intravenous amiodarone since yesterday. She is sitting up in a chair. OBJECTIVE: VITAL SIGNS: Blood pressure 108/79, pulse is 120, it is irregular. LUNGS: Clear. CARDIAC: Irregularly irregular. Tachycardic. ABDOMEN: Soft, nontender. EXTREMITIES: Mild edema. ASSESSMENT: 1. Status post bypass surgery. 2. Paroxysmal atrial fibrillation. PLAN: Continue intravenous amiodarone. Job ID: [id number]
[2019-01-17] MEDS: Iron Polysaccharides Complex 150 MG CAP PO SCH ×2 (09:19→17:35)
[2019-01-17] MEDS: Aspirin Chewable 81 MG TAB PO SCH (09:19)
[2019-01-17] MEDS: Amiodarone 200 MG TAB PO SCH ×3 (09:20→20:01)
[2019-01-17] MEDS: Allopurinol 100 MG TAB PO SCH (09:20)
[2019-01-17] MEDS: Calcium Carbonate + Vit D 1 TAB PO SCH ×2 (09:21→20:02)
[2019-01-17] MEDS: Docusate 100 MG CAP PO SCH ×2 (09:21→20:02)
[2019-01-17] MEDS: Multivitamin W/ Minerals 1 TAB PO SCH (09:22)
[2019-01-17] MEDS: Timolol 0.5% Ophth Soln 5 ml Bottle EA EYE SCH ×2 (09:23→20:03)
[2019-01-17] MEDS: Brimonidine Tartrate 0.2% Ophth Soln 5 ml Bottle EA EYE SCH ×2 (09:24→20:09)
[2019-01-17] MEDS: Metoprolol Tartrate 25 MG TAB PO SCH ×2 (09:25→23:05)
[2019-01-17] MEDS ORDERED: Polyethylene Glycol 3350 17 GM Packet PO PRN (09:51)
[2019-01-17] MEDS ORDERED: Furosemide 40 MG/4 ML VIAL SLOW IVP SCH (10:15)
--- NOTE | 2019-01-17 11:32 | PRG ---
DATE OF SERVICE: 01/17/2019 SUBJECTIVE: The patient is doing well. No complaints. Chest tube has been removed. She still has her atrial wires in. OBJECTIVE: VITAL SIGNS: Temperature is 97.9, pulse 78, blood pressure , and O2 saturation 99%. HEENT: Unremarkable. NECK: No JVD. LUNGS: Clear. CARDIAC: S1 and S2. Regular. ABDOMEN: Soft. EXTREMITIES: No edema. LABORATORY DATA: White blood cell count 6.8, hematocrit 24.2, and platelet count 121. Sodium 137, BUN 28, creatinine 0.8, glucose 147. ASSESSMENT: Post CABG, doing well from respiratory standpoint. PLAN: No new . Job ID: [id number]
[2019-01-17] MEDS: ALPRAZolam 0.25 MG TAB PO PRN ×2 (12:31→19:59)
[2019-01-17] MEDS: Furosemide 40 MG TAB PO SCH (12:31)
[2019-01-17] MEDS ORDERED: Digoxin 0.5 MG/2 ML AMP SLOW IVP SCH (15:30)
[2019-01-17] MEDS: Potassium Chloride 10 MEQ TAB PO SCH (17:35)
[2019-01-17] MEDS: Amiodarone 450 MG in Dextrose 5% in Water 250 ML IVPB SCH (17:35)
[2019-01-17] MEDS: Atorvastatin Calcium 20 MG TAB PO SCH (20:01)
[2019-01-17] MEDS: Senokot 8.6 MG TAB PO SCH (20:02)
[2019-01-17] MEDS: Enoxaparin Sodium 40 MG/0.4 ML SYRINGE SC SCH (20:03)
[2019-01-18] MEDS: Insulin Regular 300 UNITS/3 ML VIAL SC PRN (06:23)
[2019-01-18] MEDS ORDERED: diphenhydrAMINE 25 MG CAP PO PRN (07:31)
[2019-01-18] MEDS ORDERED: HumaLOG 300 UNITS/3 ML VIAL SC PRN (07:31)
[2019-01-18] MEDS ORDERED: Zolpidem Tartrate 5 MG TAB PO PRN (07:31)
[2019-01-18] MEDS ORDERED: Artificial Tears 18 DROP/0.9 ML EA EYE PRN (07:31)
[2019-01-18] MEDS ORDERED: Mineral Oil ENEMA PR PRN (07:31)
[2019-01-18] MEDS ORDERED: Dextrose 5% in Water 1,000 ML IV PRN (07:31)
[2019-01-18] MEDS ORDERED: Nitroglycerin 0.4 MG TAB (25 Tab Bottle) SL PRN (07:31)
[2019-01-18] MEDS ORDERED: Bisacodyl 10 MG SUPP PR PRN (07:31)
[2019-01-18] MEDS ORDERED: Mag-Al 1200 mg/1200 mg/30 ML UDCUP PO PRN (07:31)
[2019-01-18] MEDS ORDERED: Dextrose 50% Abboject 50 ML SYRINGE SLOW IVP PRN (07:31)
[2019-01-18] MEDS: Amiodarone 450 MG in Dextrose 5% in Water 250 ML IVPB SCH (09:13)
[2019-01-18] MEDS: Iron Polysaccharides Complex 150 MG CAP PO SCH ×2 (10:12→16:43)
[2019-01-18] MEDS: Potassium Chloride 10 MEQ TAB PO SCH ×2 (10:14→16:43)
[2019-01-18] MEDS: Amiodarone 200 MG TAB PO SCH ×3 (10:17→21:06)
[2019-01-18] MEDS: Aspirin Chewable 81 MG TAB PO SCH (10:17)
[2019-01-18] MEDS: Allopurinol 100 MG TAB PO SCH (10:17)
[2019-01-18] MEDS: Timolol 0.5% Ophth Soln 5 ml Bottle EA EYE SCH ×2 (10:17→21:07)
[2019-01-18] MEDS: Furosemide 40 MG TAB PO SCH ×2 (10:17→16:43)
[2019-01-18] MEDS: Calcium Carbonate + Vit D 1 TAB PO SCH ×2 (10:18→21:07)
[2019-01-18] MEDS: Brimonidine Tartrate 0.2% Ophth Soln 5 ml Bottle EA EYE SCH ×2 (10:18→21:07)
[2019-01-18] MEDS: Docusate 100 MG CAP PO SCH ×2 (10:19→21:07)
[2019-01-18] MEDS: Metoprolol Tartrate 25 MG TAB PO SCH ×2 (10:19→21:10)
[2019-01-18] MEDS: Multivitamin W/ Minerals 1 TAB PO SCH (10:21)
[2019-01-18] MEDS: ALPRAZolam 0.25 MG TAB PO PRN ×2 (11:17→22:11)
[2019-01-18] MEDS: HYDROcodone/Acetaminophen 5/325 mg Tablet PO PRN ×2 (11:17→22:11)
--- NOTE | 2019-01-18 11:39 | PDOC.CPN ---
- Subjective Date: 01/18/19 Time: 11:42 Interval history: The pt seen and examined. No overnight events. No cardiac complaints. - Objective Allergies/Adverse Reactions: Allergies Allergy/AdvReac Type Severity Reaction Status Date / Time No Known Allergies Allergy Unverified 01/13/19 10:48 Visit Medications: Current Medications Hydrocodone Bitart/Acetaminophen ([place] 5/325) 1 tab PO Q4H PRN PRN Reason: Moderate Pain (4-6) Last Admin: 01/18/19 11:17 Dose: 1 tab Hydrocodone Bitart/Acetaminophen ([place] 5/325) 2 tab PO Q4H PRN PRN Reason: Severe Pain (7-10) Last Admin: 01/16/19 15:07 Dose: 2 tab Al Hydroxide/Mg Hydroxide (Maalox) 30 ml PO Q4H PRN PRN Reason: Indigestion Albuterol/Ipratropium (Duoneb) 3 ml NEB [id number] PRN PRN Reason: SHORTNESS OF BREATH Allopurinol (Zyloprim) 100 mg PO DAILY [facility] Last Admin: 01/18/19 10:17 Dose: 100 mg Alprazolam (Xanax) 0.25 mg PO TIDPRN PRN PRN Reason: Anxiety Last Admin: 01/18/19 11:17 Dose: 0.25 mg Amiodarone HCl (Cordarone) 200 mg PO TID [facility] Stop: 01/28/19 21:01 Last Admin: 01/18/19 10:17 Dose: 200 mg Artificial Tears (Tears Naturale) 1 drop EA EYE PRN PRN PRN Reason: Dry Eyes Aspirin (Aspirin Chewable) 81 mg PO DAILY [facility] Last Admin: 01/18/19 10:17 Dose: 81 mg Atorvastatin Calcium (Lipitor) 20 mg PO HS [facility] Last Admin: 01/17/19 20:01 Dose: 20 mg Bisacodyl (Dulcolax) 10 mg PO Q12H PRN PRN Reason: Constipation Bisacodyl (Dulcolax) 10 mg SD Q12H PRN PRN Reason: Constipation Brimonidine Tartrate (Alphagan 0.2% Ophth Soln) 1 drop EA EYE BID [facility] Last Admin: 01/18/19 10:18 Dose: Not Given Calcium/Vitamin D (Caltrate 600 + Vit D) 2 tab PO BID [facility] Last Admin: 01/18/19 10:18 Dose: 2 tab Dextrose/Water (Dextrose 50%) 25 gm SLOW IVP PRN PRN PRN Reason: Hypoglycemia Diphenhydramine HCl (Benadryl) 25 mg PO Q6H PRN PRN Reason: Itching & Insomnia or Flo Chris Docusate Sodium (Colace) 100 mg PO BID [facility] Last Admin: 01/18/19 10:19 Dose: 100 mg Enoxaparin Sodium (Lovenox) 40 mg SC HS [facility] Last Admin: 01/17/19 20:03 Dose: 40 mg Furosemide (Lasix) 40 mg PO 0900,1400 [facility] Last Admin: 01/18/19 10:17 Dose: 40 mg Glucagon (Glucagon) 1 mg IM PRN PRN PRN Reason: Hypoglycemia Guaifenesin/Dextromethorphan (Robitussin Dm) 15 ml PO Q4H PRN PRN Reason: Cough Amiodarone HCl 450 mg/ (Dextrose/Water) 259 mls @ 0 mls/hr IVPB INF [facility] Last Admin: 01/18/19 09:13 Dose: 259 mls Dextrose/Water (D5w) 1,000 mls @ 0 mls/hr IV .Q0M PRN PRN Reason: Hypoglycemia Indomethacin (Indocin) 25 mg PO BID PRN PRN Reason: LEG PAIN Insulin Human Lispro (Humalog) 0 units SC .MODERATE SLIDING SC PRN PRN Reason: Moderate Correctional Scale Iron/Minerals/Multivitamins (Theragran M) 1 tab PO DAILY [facility] Last Admin: 01/18/19 10:21 Dose: 1 tab Meclizine HCl (Antivert) 12.5 mg PO BID PRN PRN Reason: Vertigo Metoprolol Tartrate (Lopressor) 25 mg PO BID [facility] Last Admin: 01/18/19 10:19 Dose: 25 mg Mineral Oil (Fleet Mineral Oil) 133 ml SD DAILYPRN PRN PRN Reason: Constipation Mirabegron (Myrbetriq Er) 50 mg PO QAM [facility] Last Admin: 01/18/19 10:19 Dose: 50 mg Nitroglycerin (Nitrostat) 0.4 mg SL Q5MIN PRN PRN Reason: Chest Pain Ondansetron HCl (Zofran) 4 mg IVP Q6H PRN PRN Reason: Nausea/Vomiting Last Admin: 01/14/19 19:53 Dose: 4 mg Pantoprazole Sodium (Protonix) 40 mg PO DAILY [facility] Last Admin: 01/18/19 10:18 Dose: 40 mg Polysaccharide Iron Complex (Niferex) 150 mg PO BID-[facility] Last Admin: 01/18/19 10:12 Dose: 150 mg Potassium Chloride (Klor-Con 10) 10 meq PO BID-[facility] Last Admin: 01/18/19 10:14 Dose: 10 meq Senna (Senokot) 1 tab PO HS [facility] Last Admin: 01/17/19 20:02 Dose: 1 tab Sodium Chloride (Flush - Normal Saline) 10 ml IVF Q12HR [facility] Last Admin: 01/18/19 10:18 Dose: 10 ml Throat Lozenges (Cepastat Lozenges) 1 elisabeth PO PRN PRN PRN Reason: Sore Throat Last Admin: 01/17/19 15:07 Dose: 1 elisabeth Timolol Maleate (Timoptic 0.5% Ophth Soln) 1 drop EA EYE BID [facility] Last Admin: 01/18/19 10:17 Dose: 1 drop Zolpidem Tartrate (Ambien) 5 mg PO HSPRN PRN PRN Reason: Insomnia Vital Signs & Weight: Vital Signs Temp Pulse Pulse Pulse BP BP BP 01/18/19 10:17 88 110/56 L 01/18/19 09:10 89 98 93/52 L 137/73 01/18/19 08:00 98.2 F 01/18/19 04:00 98.3 F 01/18/19 00:00 98.5 F Weight 239 lb 13.807 oz - Physical Exam Neck: supple neck Cardiac: regular rate and rhythm, S1/S2 Lungs: clear to auscultation, decreased breath sounds Neuro: cranial nerve 2-12 intact Abdomen: unremarkable Skin: clear Musculoskeletal: decreased range of motion - Labs Result Diagrams: 01/17/19 05:00 01/17/19 05:00 - Telemetry Sinus rhythms and dysrhythmias: sinus rhythm - Assessment/Plan Assessment/Plan: 1. CAD with s/p CABG x5 on 01/14/2019 with HARTMAN-LAD, RGSV-1st OM, RGSV-diag, RGSV-RCA and PDA - stable with Metoprolol was increased from 12.5mg to 25mg BID from today; On ASA and Lipitor 2. Post-op Afib - s/p Afib with RVR on 01/14/2019 and 01/16/2019; converted back to SR with Amiodarone drip with Amiodarone PO 200mg TID with titration q 2wks. 3. HTN - stable with Metoprolol 25mg BID 3. HLD - On Lipitor 20mg 4. DM type 2 - 5. IBS MAR reviewed <addendum> Will d/c Amiodarone drip; will start OAC (ex Eliquis) once cleared by CT Surgeon for Afib. <addendum 2> the pt converted back to Afib around 1700. Will resume Amio drip with maintenance dose with PO Amiodarone. Pt. seen and eval. by me. I agree with the A/P by the PHYTOPATHOLOGIST. We have discussed the pt. and the plan. Chesty clear. RRR.No significant edema. gjmays
--- NOTE | 2019-01-18 14:58 | PRG ---
DATE OF SERVICE: 01/18/2019 SUBJECTIVE: Nataliya Buckley is in no distress. OBJECTIVE: VITAL SIGNS: Heart rate is in the 80s, blood pressure 110/56, oximetry is 94% on room air. LUNGS: Clear. HEART: Regular rhythm. ABDOMEN: Soft and nontender. LABORATORY DATA: There is no lab today except blood glucoses, which are 154 or less. IMPRESSION: Status post coronary artery bypass grafting, clinically stable to transfer out of the critical care environment. Job ID: [id number]
[2019-01-18] MEDS ORDERED: Amiodarone 450 MG in Dextrose 5% in Water 250 ML IVPB SCH (17:15)
[2019-01-18] MEDS: Atorvastatin Calcium 20 MG TAB PO SCH (21:06)
[2019-01-18] MEDS: Guaifenesin DM 100-10/5 ML UDCUP PO PRN (21:06)
[2019-01-18] MEDS: Senokot 8.6 MG TAB PO SCH (21:06)
[2019-01-18] MEDS: Enoxaparin Sodium 40 MG/0.4 ML SYRINGE SC SCH (21:09)
[2019-01-19] MEDS: HYDROcodone/Acetaminophen 5/325 mg Tablet PO PRN ×3 (03:28→20:25)
[2019-01-19 05:31] LABS: #Eosinphils 0.3 thou/uL (0.0-0.7); #Lymphocytes 1.5 thou/uL (1.20-3.40); #Monocytes 0.7 thou/uL (0.11-0.59); #Neutrophils 5.5 thou/uL (1.40-6.50); %Basophils 0.3 % (0.0-1.0); %Eosinophils 3.3 % (0.0-10.0); %Lymphocytes 18.6 % (21.0-51.0); %Monocytes 8.4 % (0.0-10.0); %Neutrophils 69.4 % (42.0-75.0); Hemoglobin 8.1 g/dL (12.0-16.0); Mean Corpuscular HGB CONC 32.8 g/dL (32.0-36.0); Mean Corpuscular Hemoglobin 32.4 pg (27.0-31.0); Mean Platelet Volume 7.5 fL (7.4-10.4); Platelet Count 181 thou/uL (130-400); RBC Distribution Width 12.8 % (11.5-14.5); Red Blood Cell (RBC) Count 2.49 mill/uL (4.20-5.40); White Blood Cell (WBC) Count 7.9 thou/uL (4.8-10.8)
[2019-01-19 05:50] LABS: Anion Gap 12 mmol/L (10-20); BUN (Urea Nitrogen) 23 mg/dL (9.8-20.1); Calc. Creatinine Clearance 105 mL/min (70-130); Calcium 8.7 mg/dL (7.8-10.44); Carbon Dioxide 23 mmol/L (23-31); Chloride 105 mmol/L (98-107); Estimated GFR-MDRD 74; Glucose 119 mg/dL (83-110); Sodium 136 mmol/L (136-145)
[2019-01-19] MEDS: Iron Polysaccharides Complex 150 MG CAP PO SCH ×2 (09:49→16:12)
[2019-01-19] MEDS: Docusate 100 MG CAP PO SCH ×2 (09:50→20:29)
[2019-01-19] MEDS: Allopurinol 100 MG TAB PO SCH (09:50)
[2019-01-19] MEDS: Aspirin Chewable 81 MG TAB PO SCH (09:50)
[2019-01-19] MEDS: Amiodarone 200 MG TAB PO SCH ×3 (09:50→20:29)
[2019-01-19] MEDS: Potassium Chloride 10 MEQ TAB PO SCH ×2 (09:50→16:13)
[2019-01-19] MEDS: Calcium Carbonate + Vit D 1 TAB PO SCH ×2 (09:50→20:28)
[2019-01-19] MEDS: Multivitamin W/ Minerals 1 TAB PO SCH (09:51)
[2019-01-19] MEDS: Pioglitazone HCl 15 MG TAB PO SCH (09:51)
[2019-01-19] MEDS: ALPRAZolam 0.25 MG TAB PO PRN ×2 (09:52→20:24)
--- NOTE | 2019-01-19 09:54 | PDOC.CPN ---
- Subjective Date: 01/19/19 Time: 09:53 Interval history: The pt seen and examined. No overnight events. No cardiac complaints. - Objective Allergies/Adverse Reactions: Allergies Allergy/AdvReac Type Severity Reaction Status Date / Time No Known Allergies Allergy Unverified 01/13/19 10:48 Visit Medications: Current Medications Hydrocodone Bitart/Acetaminophen ([place] 5/325) 1 tab PO Q4H PRN PRN Reason: Moderate Pain (4-6) Last Admin: 01/19/19 03:28 Dose: 1 tab Hydrocodone Bitart/Acetaminophen ([place] 5/325) 2 tab PO Q4H PRN PRN Reason: Severe Pain (7-10) Last Admin: 01/16/19 15:07 Dose: 2 tab Al Hydroxide/Mg Hydroxide (Maalox) 30 ml PO Q4H PRN PRN Reason: Indigestion Albuterol/Ipratropium (Duoneb) 3 ml NEB Q4TT-DJ PRN PRN Reason: SHORTNESS OF BREATH Allopurinol (Zyloprim) 100 mg PO DAILY [facility] Last Admin: 01/18/19 10:17 Dose: 100 mg Alprazolam (Xanax) 0.25 mg PO TIDPRN PRN PRN Reason: Anxiety Last Admin: 01/18/19 22:11 Dose: 0.25 mg Amiodarone HCl (Cordarone) 200 mg PO TID [facility] Stop: 01/28/19 21:01 Last Admin: 01/18/19 21:06 Dose: 200 mg Artificial Tears (Tears Naturale) 1 drop EA EYE PRN PRN PRN Reason: Dry Eyes Aspirin (Aspirin Chewable) 81 mg PO DAILY [facility] Last Admin: 01/18/19 10:17 Dose: 81 mg Atorvastatin Calcium (Lipitor) 20 mg PO HS [facility] Last Admin: 01/18/19 21:06 Dose: 20 mg Bisacodyl (Dulcolax) 10 mg PO Q12H PRN PRN Reason: Constipation Bisacodyl (Dulcolax) 10 mg [place] Q12H PRN PRN Reason: Constipation Brimonidine Tartrate ([place]ph[place] 0.2% Ophth Soln) 1 drop EA EYE BID [facility] Last Admin: 01/18/19 21:07 Dose: 1 drop Calcium/Vitamin D (Caltrate 600 + Vit D) 2 tab PO BID [facility] Last Admin: 01/18/19 21:07 Dose: 2 tab Dextrose/Water (Dextrose 50%) 25 gm SLOW IVP PRN PRN PRN Reason: Hypoglycemia Diphenhydramine HCl (Benadryl) 25 mg PO Q6H PRN PRN Reason: Itching & Insomnia or Flo Chris Docusate Sodium (Colace) 100 mg PO BID [facility] Last Admin: 01/18/19 21:07 Dose: 100 mg Enoxaparin Sodium (Lovenox) 40 mg SC HS [facility] Last Admin: 01/18/19 21:09 Dose: 40 mg Furosemide (Lasix) 40 mg PO 0900,1400 [facility] Stop: 01/19/19 23:59 Last Admin: 01/18/19 16:43 Dose: 40 mg Glucagon (Glucagon) 1 mg IM PRN PRN PRN Reason: Hypoglycemia Guaifenesin/Dextromethorphan (Robitussin Dm) 15 ml PO Q4H PRN PRN Reason: Cough Last Admin: 01/18/19 21:06 Dose: 15 ml Dextrose/Water (D5w) 1,000 mls @ 0 mls/hr IV .Q0M PRN PRN Reason: Hypoglycemia Amiodarone HCl 450 mg/ (Dextrose/Water) 259 mls @ 17.26 mls/hr IVPB INF [facility]; Protocol Indomethacin (Indocin) 25 mg PO BID PRN PRN Reason: LEG PAIN Insulin Human Lispro (Humalog) 0 units SC .MODERATE SLIDING SC PRN PRN Reason: Moderate Correctional Scale Iron/Minerals/Multivitamins (Theragran M) 1 tab PO DAILY [facility] Last Admin: 01/18/19 10:21 Dose: 1 tab Meclizine HCl (Antivert) 12.5 mg PO BID PRN PRN Reason: Vertigo Metoprolol Tartrate (Lopressor) 25 mg PO BID [facility] Last Admin: 01/18/19 21:10 Dose: 25 mg Mineral Oil (Fleet Mineral Oil) 133 ml ND DAILYPRN PRN PRN Reason: Constipation Mirabegron (Myrbetriq Er) 50 mg PO QAM [facility] Last Admin: 01/18/19 10:19 Dose: 50 mg Nitroglycerin (Nitrostat) 0.4 mg SL Q5MIN PRN PRN Reason: Chest Pain Ondansetron HCl (Zofran) 4 mg IVP Q6H PRN PRN Reason: Nausea/Vomiting Last Admin: 01/14/19 19:53 Dose: 4 mg Pantoprazole Sodium (Protonix) 40 mg PO DAILY [facility] Last Admin: 01/18/19 10:18 Dose: 40 mg Pioglitazone HCl (Actos) 7.5 mg PO DAILY [facility] Polysaccharide Iron Complex (Niferex) 150 mg PO BID-[facility] Last Admin: 01/18/19 16:43 Dose: 150 mg Potassium Chloride (Klor-Con 10) 10 meq PO BID-[facility] Last Admin: 01/18/19 16:43 Dose: 10 meq Senna (Senokot) 1 tab PO HS [facility] Last Admin: 01/18/19 21:06 Dose: 1 tab Sodium Chloride (Flush - Normal Saline) 10 ml IVF Q12HR [facility] Last Admin: 01/18/19 21:10 Dose: 10 ml Throat Lozenges (Cepastat Lozenges) 1 elisabeth PO PRN PRN PRN Reason: Sore Throat Last Admin: 01/17/19 15:07 Dose: 1 elisabeth Timolol Maleate (Timoptic 0.5% Ophth Soln) 1 drop EA EYE BID [facility] Last Admin: 01/18/19 21:07 Dose: 1 drop Zolpidem Tartrate (Ambien) 5 mg PO HSPRN PRN PRN Reason: Insomnia Vital Signs & Weight: Vital Signs Temp Pulse Resp BP Pulse Ox 01/19/19 07:40 99/54 L 01/19/19 07:32 97.8 F 76 20 88/53 L 99 01/19/19 04:00 98.9 F 74 20 103/58 L 01/19/19 00:00 75 20 93/50 L Weight 247 lb 6.4 oz - Physical Exam Neck: supple neck Cardiac: regular rate and rhythm, S1/S2 Lungs: clear to auscultation, decreased breath sounds Musculoskeletal: decreased range of motion - Labs Result Diagrams: 01/19/19 05:07 01/19/19 05:07 - Telemetry Sinus rhythms and dysrhythmias: sinus rhythm - Assessment/Plan Assessment/Plan: 1. CAD with s/p CABG x5 on 01/14/2019 with HARTMAN-LAD, RGSV-1st OM, RGSV-diag, RGSV-RCA and PDA - stable with Metoprolol, ASA, and Lipitor 2. Post-op Afib - s/p Afib with RVR on 01/14/2019 and 01/16/2019; converted back to SR around 0200 on 01/19/2019; stopped Amiodarone drip due to hypotension ; will hold Metoprolol this AM and will change to 12.5mg BID; cont. Amiodarone PO 200mg TID with titration q 2wks. 3. HTN - hypotensive this AM; will change Metoprolol from 25mg to 12.5mg BID and Lasix 40mg from BID to qd. 3. HLD - On Lipitor 20mg 4. DM type 2 - 5. IBS MAR reviewed * will start OAC (ex Eliquis) once cleared by CT Surgeon for Afib. pt. seen and eval. by me. I agree with the A/P by the POLISHING MACHINE OPERATOR. Chest clear. RRR. She is in NSR at this time. Continue po amiodarone.
[2019-01-19] MEDS: Metoprolol Tartrate 25 MG TAB PO SCH ×2 (09:56→20:28)
[2019-01-19] MEDS: Furosemide 40 MG TAB PO SCH (09:57)
[2019-01-19] MEDS: Timolol 0.5% Ophth Soln 5 ml Bottle EA EYE SCH ×2 (09:57→20:26)
[2019-01-19] MEDS: Brimonidine Tartrate 0.2% Ophth Soln 5 ml Bottle EA EYE SCH ×2 (09:59→20:28)
--- NOTE | 2019-01-19 10:08 | RAD ---
PORTABLE CHEST: Date: 01/19/19 HISTORY: Post CABG. COMPARISON: 01/16/19. FINDINGS: Left chest tube has been removed. Atelectatic changes in the left lung base. Lungs otherwise appear w ell aerated and clear. Central line is unchanged. Postop sternotomy change. Heart and mediastinum unr emarkable. IMPRESSION: No evidence of acute process post sternotomy. POS: OFF
[2019-01-19] MEDS: Guaifenesin DM 100-10/5 ML UDCUP PO PRN (20:24)
[2019-01-19] MEDS: Enoxaparin Sodium 40 MG/0.4 ML SYRINGE SC SCH (20:27)
[2019-01-19] MEDS: Senokot 8.6 MG TAB PO SCH (20:29)
[2019-01-19] MEDS: Atorvastatin Calcium 20 MG TAB PO SCH (20:29)
[2019-01-20] MEDS: HYDROcodone/Acetaminophen 5/325 mg Tablet PO PRN ×3 (03:07→21:38)
[2019-01-20] MEDS: Iron Polysaccharides Complex 150 MG CAP PO SCH ×2 (08:36→18:15)
[2019-01-20] MEDS: Amiodarone 200 MG TAB PO SCH ×3 (08:36→21:35)
[2019-01-20] MEDS: Potassium Chloride 10 MEQ TAB PO SCH ×2 (08:36→18:15)
[2019-01-20] MEDS: Allopurinol 100 MG TAB PO SCH (08:36)
[2019-01-20] MEDS: Furosemide 40 MG TAB PO SCH (08:36)
[2019-01-20] MEDS: Aspirin Chewable 81 MG TAB PO SCH (08:37)
[2019-01-20] MEDS: Docusate 100 MG CAP PO SCH ×2 (08:37→21:35)
[2019-01-20] MEDS: Calcium Carbonate + Vit D 1 TAB PO SCH ×2 (08:37→21:35)
[2019-01-20] MEDS: Multivitamin W/ Minerals 1 TAB PO SCH (08:38)
[2019-01-20] MEDS: Metoprolol Tartrate 25 MG TAB PO SCH ×2 (08:38→21:37)
[2019-01-20] MEDS: Pioglitazone HCl 15 MG TAB PO SCH (08:39)
[2019-01-20] MEDS: Bisacodyl 5 MG TAB PO PRN (08:48)
[2019-01-20] MEDS: Brimonidine Tartrate 0.2% Ophth Soln 5 ml Bottle EA EYE SCH ×2 (08:50→21:40)
[2019-01-20] MEDS: Timolol 0.5% Ophth Soln 5 ml Bottle EA EYE SCH ×2 (08:51→21:41)
--- NOTE | 2019-01-20 11:35 | PDOC.CPN ---
- Subjective Date: 01/20/19 Time: 11:39 Interval history: The pt seen and examined. No overnight events. No cardiac complaints. - Objective Allergies/Adverse Reactions: Allergies Allergy/AdvReac Type Severity Reaction Status Date / Time No Known Allergies Allergy Unverified 01/13/19 10:48 Visit Medications: Current Medications Hydrocodone Bitart/Acetaminophen ([place] 5/325) 1 tab PO Q4H PRN PRN Reason: Moderate Pain (4-6) Last Admin: 01/20/19 03:07 Dose: 1 tab Hydrocodone Bitart/Acetaminophen ([place] 5/325) 2 tab PO Q4H PRN PRN Reason: Severe Pain (7-10) Last Admin: 01/16/19 15:07 Dose: 2 tab Al Hydroxide/Mg Hydroxide (Maalox) 30 ml PO Q4H PRN PRN Reason: Indigestion Albuterol/Ipratropium (Duoneb) 3 ml NEB [id number] PRN PRN Reason: SHORTNESS OF BREATH Allopurinol (Zyloprim) 100 mg PO DAILY [facility] Last Admin: 01/20/19 08:36 Dose: 100 mg Alprazolam (Xanax) 0.25 mg PO TIDPRN PRN PRN Reason: Anxiety Last Admin: 01/19/19 20:24 Dose: 0.25 mg Amiodarone HCl (Cordarone) 200 mg PO TID [facility] Stop: 01/28/19 21:01 Last Admin: 01/20/19 08:36 Dose: 200 mg Apixaban (Eliquis) 5 mg PO BID [facility] Artificial Tears (Tears Naturale) 1 drop EA EYE PRN PRN PRN Reason: Dry Eyes Aspirin (Aspirin Chewable) 81 mg PO DAILY [facility] Last Admin: 01/20/19 08:37 Dose: 81 mg Atorvastatin Calcium (Lipitor) 20 mg PO HS [facility] Last Admin: 01/19/19 20:29 Dose: 20 mg Bisacodyl (Dulcolax) 10 mg PO Q12H PRN PRN Reason: Constipation Last Admin: 01/20/19 08:48 Dose: 10 mg Bisacodyl (Dulcolax) 10 mg [place] Q12H PRN PRN Reason: Constipation Brimonidine Tartrate (Alphagan 0.2% Oph Sol) 1 drop EA EYE BID [facility] Last Admin: 01/20/19 08:50 Dose: 1 drop Calcium/Vitamin D (Caltrate 600 + Vit D) 2 tab PO BID [facility] Last Admin: 01/20/19 08:37 Dose: 2 tab Dextrose/Water (Dextrose 50%) 25 gm SLOW IVP PRN PRN PRN Reason: Hypoglycemia Diphenhydramine HCl (Benadryl) 25 mg PO Q6H PRN PRN Reason: Itching & Insomnia or Flo Chris Docusate Sodium (Colace) 100 mg PO BID [facility] Last Admin: 01/20/19 08:37 Dose: 100 mg Furosemide (Lasix) 40 mg PO DAILY-[facility] Last Admin: 01/20/19 08:36 Dose: 40 mg Glucagon (Glucagon) 1 mg IM PRN PRN PRN Reason: Hypoglycemia Guaifenesin/Dextromethorphan (Robitussin Dm) 15 ml PO Q4H PRN PRN Reason: Cough Last Admin: 01/19/19 20:24 Dose: 15 ml Dextrose/Water (D5w) 1,000 mls @ 0 mls/hr IV .Q0M PRN PRN Reason: Hypoglycemia Indomethacin (Indocin) 25 mg PO BID PRN PRN Reason: LEG PAIN Insulin Human Lispro (Humalog) 0 units SC .MODERATE SLIDING SC PRN PRN Reason: Moderate Correctional Scale Iron/Minerals/Multivitamins (Theragran M) 1 tab PO DAILY [facility] Last Admin: 01/20/19 08:38 Dose: 1 tab Meclizine HCl (Antivert) 12.5 mg PO BID PRN PRN Reason: Vertigo Metoprolol Tartrate (Lopressor) 12.5 mg PO BID [facility] Last Admin: 01/20/19 08:38 Dose: 12.5 mg Mineral Oil (Fleet Mineral Oil) 133 ml [place] DAILYPRN PRN PRN Reason: Constipation Mirabegron (Myrbetriq Er) 50 mg PO QAM [facility] Last Admin: 01/20/19 08:38 Dose: 50 mg Nitroglycerin (Nitrostat) 0.4 mg SL Q5MIN PRN PRN Reason: Chest Pain Ondansetron HCl (Zofran) 4 mg IVP Q6H PRN PRN Reason: Nausea/Vomiting Last Admin: 01/14/19 19:53 Dose: 4 mg Pantoprazole Sodium (Protonix) 40 mg PO DAILY [facility] Last Admin: 01/20/19 08:38 Dose: 40 mg Pioglitazone HCl (Actos) 7.5 mg PO DAILY [facility] Last Admin: 01/20/19 08:39 Dose: 7.5 mg Polysaccharide Iron Complex (Niferex) 150 mg PO BID-[facility] Last Admin: 01/20/19 08:36 Dose: 150 mg Potassium Chloride (Klor-Con 10) 10 meq PO BID-[facility] Last Admin: 01/20/19 08:36 Dose: 10 meq Senna (Senokot) 1 tab PO HS [facility] Last Admin: 01/19/19 20:29 Dose: 1 tab Sodium Chloride (Flush - Normal Saline) 10 ml IVF Q12HR [facility] Last Admin: 01/20/19 08:45 Dose: 10 ml Throat Lozenges (Cepastat Lozenges) 1 elisabeth PO PRN PRN PRN Reason: Sore Throat Last Admin: 01/17/19 15:07 Dose: 1 elisabeth Timolol Maleate (Timoptic 0.5% Oph Soln) 1 drop EA EYE BID [facility] Last Admin: 01/20/19 08:51 Dose: 1 drop Zolpidem Tartrate (Ambien) 5 mg PO HSPRN PRN PRN Reason: Insomnia Vital Signs & Weight: Vital Signs Temp Pulse Pulse Pulse Resp BP BP 01/20/19 08:51 84 120/62 01/20/19 08:20 98 86 137/63 01/20/19 07:57 98.2 F 84 14 01/20/19 03:12 97.5 F L 75 20 01/20/19 00:00 80 18 BP BP Pulse Ox Pulse Ox Pulse Ox 01/20/19 08:51 01/20/19 08:20 145/69 H 100 98 01/20/19 07:57 120/62 97 01/20/19 03:12 104/56 L 98 01/20/19 00:00 Weight 247 lb 14.4 oz - Physical Exam General: alert & oriented x3 HEENT: mucus membranes moist Neck: supple neck Cardiac: regular rate and rhythm, S1/S2 Lungs: clear to auscultation, decreased breath sounds Skin: clear Musculoskeletal: decreased range of motion - Labs Result Diagrams: 01/19/19 05:07 01/19/19 05:07 - Telemetry Sinus rhythms and dysrhythmias: sinus rhythm (HR 90s with RBBB) - Assessment/Plan Assessment/Plan: 1. CAD with s/p CABG x5 on 01/14/2019 with HARTMAN-LAD, RGSV-1st OM, RGSV-diag, RGSV-RCA and PDA - stable with Metoprolol, ASA 81mg, and Lipitor 2. Post-op Afib - s/p Afib with RVR on 01/14/2019 and 01/16/2019; converted back to SR around 0200 on 01/19/2019; stopped Amiodarone drip due to hypotension ; Remains in SR with Metoprolol 12.5mg BID; Amiodarone PO 200mg TID (started on 01/15/2019) with titration q 2wks. Will start Eliquis 5mg BID for 1 month and d/ c if she is in SR. 3. HTN - stable with Metoprolol 12.5mg BID and Lasix 40mg PO qd. 3. HLD - On Lipitor 20mg 4. DM type 2 - 5. IBS MAR reviewed Pt. seen and eval. by me. I agree with the A/P by the ECHO VASCULAR TECH. Still some decreased BS in the right base. Mild edema. Remains in NSR. Doing well s/p CABG. mack
[2019-01-20] MEDS: Guaifenesin DM 100-10/5 ML UDCUP PO PRN ×2 (15:12→21:41)
[2019-01-20] MEDS: Senokot 8.6 MG TAB PO SCH (21:35)
[2019-01-20] MEDS: Apixaban 5 MG TAB PO SCH (21:35)
[2019-01-20] MEDS: Atorvastatin Calcium 20 MG TAB PO SCH (21:36)
[2019-01-20] MEDS: ALPRAZolam 0.25 MG TAB PO PRN (21:38)
[2019-01-21] MEDS: HYDROcodone/Acetaminophen 5/325 mg Tablet PO PRN ×2 (07:26→14:16)
[2019-01-21] MEDS: Pioglitazone HCl 15 MG TAB PO SCH (08:15)
[2019-01-21] MEDS: Allopurinol 100 MG TAB PO SCH (08:15)
[2019-01-21] MEDS: Amiodarone 200 MG TAB PO SCH ×3 (08:16→20:37)
[2019-01-21] MEDS: Aspirin Chewable 81 MG TAB PO SCH (08:16)
[2019-01-21] MEDS: Multivitamin W/ Minerals 1 TAB PO SCH (08:16)
[2019-01-21] MEDS: Iron Polysaccharides Complex 150 MG CAP PO SCH ×2 (08:16→16:36)
[2019-01-21] MEDS: Potassium Chloride 10 MEQ TAB PO SCH ×2 (08:16→16:35)
[2019-01-21] MEDS: Furosemide 40 MG TAB PO SCH (08:16)
[2019-01-21] MEDS: Calcium Carbonate + Vit D 1 TAB PO SCH ×2 (08:16→20:38)
[2019-01-21] MEDS: Metoprolol Tartrate 25 MG TAB PO SCH ×2 (08:16→20:39)
[2019-01-21] MEDS: Apixaban 5 MG TAB PO SCH ×2 (08:16→20:37)
[2019-01-21] MEDS: Docusate 100 MG CAP PO SCH ×2 (08:16→20:39)
[2019-01-21] MEDS: Brimonidine Tartrate 0.2% Ophth Soln 5 ml Bottle EA EYE SCH ×2 (08:18→20:38)
[2019-01-21] MEDS: Timolol 0.5% Ophth Soln 5 ml Bottle EA EYE SCH ×2 (08:18→20:38)
[2019-01-21] MEDS: Guaifenesin DM 100-10/5 ML UDCUP PO PRN ×3 (09:29→20:40)
[2019-01-21] MEDS: Bisacodyl 5 MG TAB PO PRN (10:46)
--- NOTE | 2019-01-21 13:15 | PDOC.CPN ---
- Subjective Date: 01/21/19 Time: 13:15 Interval history: The pt seen and examined. No overnight events. No cardiac complaints. She still needs assist for getting up from chair/bed and a walker - Objective Allergies/Adverse Reactions: Allergies Allergy/AdvReac Type Severity Reaction Status Date / Time No Known Allergies Allergy Unverified 01/13/19 10:48 Visit Medications: Current Medications Hydrocodone Bitart/Acetaminophen ([place] 5/325) 1 tab PO Q4H PRN PRN Reason: Moderate Pain (4-6) Last Admin: 01/21/19 07:26 Dose: 1 tab Hydrocodone Bitart/Acetaminophen ([place] 5/325) 2 tab PO Q4H PRN PRN Reason: Severe Pain (7-10) Last Admin: 01/16/19 15:07 Dose: 2 tab Al Hydroxide/Mg Hydroxide (Maalox) 30 ml PO Q4H PRN PRN Reason: Indigestion Last Admin: 01/20/19 18:22 Dose: 30 ml Albuterol/Ipratropium (Duoneb) 3 ml NEB [id number] PRN PRN Reason: SHORTNESS OF BREATH Allopurinol (Zyloprim) 100 mg PO DAILY [facility] Last Admin: 01/21/19 08:15 Dose: 100 mg Alprazolam (Xanax) 0.25 mg PO TIDPRN PRN PRN Reason: Anxiety Last Admin: 01/20/19 21:38 Dose: 0.25 mg Amiodarone HCl (Cordarone) 200 mg PO TID [facility] Stop: 01/28/19 21:01 Last Admin: 01/21/19 08:16 Dose: 200 mg Apixaban (Eliquis) 5 mg PO BID [facility] Last Admin: 01/21/19 08:16 Dose: 5 mg Artificial Tears (Tears Naturale) 1 drop EA EYE PRN PRN PRN Reason: Dry Eyes Aspirin (Aspirin Chewable) 81 mg PO DAILY [facility] Last Admin: 01/21/19 08:16 Dose: 81 mg Atorvastatin Calcium (Lipitor) 20 mg PO HS [facility] Last Admin: 01/20/19 21:36 Dose: 20 mg Bisacodyl (Dulcolax) 10 mg PO Q12H PRN PRN Reason: Constipation Last Admin: 01/21/19 10:46 Dose: 10 mg Bisacodyl (Dulcolax) 10 mg NV Q12H PRN PRN Reason: Constipation Last Admin: 01/21/19 13:02 Dose: 10 mg Brimonidine Tartrate (Alphagan 0.2% Ophth Soln) 1 drop EA EYE BID [facility] Last Admin: 01/21/19 08:18 Dose: 1 drop Calcium/Vitamin D (Caltrate 600 + Vit D) 2 tab PO BID [facility] Last Admin: 01/21/19 08:16 Dose: 2 tab Dextrose/Water (Dextrose 50%) 25 gm SLOW IVP PRN PRN PRN Reason: Hypoglycemia Diphenhydramine HCl (Benadryl) 25 mg PO Q6H PRN PRN Reason: Itching & Insomnia or Flo Chris Docusate Sodium (Colace) 100 mg PO BID [facility] Last Admin: 01/21/19 08:16 Dose: 100 mg Furosemide (Lasix) 40 mg PO DAILY[facility] Last Admin: 01/21/19 08:16 Dose: 40 mg Glucagon (Glucagon) 1 mg IM PRN PRN PRN Reason: Hypoglycemia Guaifenesin/Dextromethorphan (Robitussin Dm) 15 ml PO Q4H PRN PRN Reason: Cough Last Admin: 01/21/19 09:29 Dose: 15 ml Dextrose/Water (D5w) 1,000 mls @ 0 mls/hr IV .Q0M PRN PRN Reason: Hypoglycemia Indomethacin (Indocin) 25 mg PO BID PRN PRN Reason: LEG PAIN Last Admin: 01/20/19 15:12 Dose: 25 mg Insulin Human Lispro (Humalog) 0 units SC .MODERATE SLIDING SC PRN PRN Reason: Moderate Correctional Scale Iron/Minerals/Multivitamins (Theragran M) 1 tab PO DAILY [facility] Last Admin: 01/21/19 08:16 Dose: 1 tab Meclizine HCl (Antivert) 12.5 mg PO BID PRN PRN Reason: Vertigo Metoprolol Tartrate (Lopressor) 12.5 mg PO BID [facility] Last Admin: 01/21/19 08:16 Dose: 12.5 mg Mineral Oil (Fleet Mineral Oil) 133 ml NV DAILYPRN PRN PRN Reason: Constipation Mirabegron (Myrbetriq Er) 50 mg PO QAM [facility] Last Admin: 01/21/19 09:26 Dose: 50 mg Nitroglycerin (Nitrostat) 0.4 mg SL Q5MIN PRN PRN Reason: Chest Pain Ondansetron HCl (Zofran) 4 mg IVP Q6H PRN PRN Reason: Nausea/Vomiting Last Admin: 01/14/19 19:53 Dose: 4 mg Pantoprazole Sodium (Protonix) 40 mg PO DAILY [facility] Last Admin: 01/21/19 08:16 Dose: 40 mg Pioglitazone HCl (Actos) 7.5 mg PO DAILY [facility] Last Admin: 01/21/19 08:15 Dose: 7.5 mg Polysaccharide Iron Complex (Niferex) 150 mg PO BID-[facility] Last Admin: 01/21/19 08:16 Dose: 150 mg Potassium Chloride (Klor-Con 10) 10 meq PO BID-[facility] Last Admin: 01/21/19 08:16 Dose: 10 meq Senna (Senokot) 1 tab PO HS [facility] Last Admin: 01/20/19 21:35 Dose: 1 tab Sodium Chloride (Flush - Normal Saline) 10 ml IVF Q12HR [facility] Last Admin: 01/21/19 08:18 Dose: 10 ml Throat Lozenges (Cepastat Lozenges) 1 elisabeth PO PRN PRN PRN Reason: Sore Throat Last Admin: 01/17/19 15:07 Dose: 1 elisabeth Timolol Maleate (Timoptic 0.5% Ophth Soln) 1 drop EA EYE BID [facility] Last Admin: 01/21/19 08:18 Dose: 1 drop Zolpidem Tartrate (Ambien) 5 mg PO HSPRN PRN PRN Reason: Insomnia Vital Signs & Weight: Vital Signs Temp Pulse Resp BP Pulse Ox 01/21/19 12:39 98.1 F 73 16 112/55 L 98 01/21/19 08:15 97 01/21/19 08:13 125/60 01/21/19 07:22 98.2 F 78 18 104/55 L 97 01/21/19 04:00 98.3 F 71 20 101/57 L 98 Weight 245 lb 14.4 oz - Physical Exam General: alert & oriented x3 Neck: supple neck Cardiac: regular rate and rhythm, S1/S2 Lungs: clear to auscultation, decreased breath sounds Neuro: cranial nerve 2-12 intact Abdomen: unremarkable Skin: clear Musculoskeletal: decreased range of motion - Labs Result Diagrams: 01/19/19 05:07 01/19/19 05:07 - Telemetry Sinus rhythms and dysrhythmias: sinus rhythm - Assessment/Plan Assessment/Plan: 1. CAD with s/p CABG x5 on 01/14/2019 with HARTMAN-LAD, RGSV-1st OM, RGSV-diag, RGSV-RCA and PDA - stable with Metoprolol, ASA 81mg, and Lipitor 2. Post-op Afib - s/p Afib with RVR on 01/14/2019 and 01/16/2019; converted back to SR around 0200 on 01/19/2019; Remains in SR with Metoprolol 12.5mg BID; Amiodarone PO 200mg TID (started on 01/15/2019) with titration q 2wks. Cont. Eliquis 5mg BID for 1 month and d/c if she is in SR. 3. HTN - stable with Metoprolol 12.5mg BID and Lasix 40mg PO qd. 3. HLD - On Lipitor 20mg 4. DM type 2 - 5. IBS MAR reviewed * plan to tx to rehab. pt. seen and eval. by me. I agree with the A/P by the INJECTION MOLDING PROCESS TECHNICIAN. She is ambulating some. Worst problem today was constipation. Now resolved. Chest clear. RRR.
[2019-01-21] MEDS: Atorvastatin Calcium 20 MG TAB PO SCH (20:37)
[2019-01-21] MEDS: Senokot 8.6 MG TAB PO SCH (20:39)
[2019-01-22] MEDS: HYDROcodone/Acetaminophen 5/325 mg Tablet PO PRN (02:43)
--- NOTE | 2019-01-22 03:24 | DIS ---
DATE OF ADMISSION: 01/14/2019 DATE OF DISCHARGE: 01/21/2019 PRINCIPAL DIAGNOSIS: Coronary artery disease. SECONDARY DIAGNOSES: 1. Atrial fibrillation, secondary diagnoses present but not specifically addressed. 2. Diabetes mellitus. 3. Hypertension. PROCEDURES PERFORMED: Coronary artery bypass grafting x5 with left internal mammary artery to the LAD, reverse greater saphenous vein graft from aorta to the diagonal and to the first obtuse marginal and sequential reverse greater saphenous vein graft from aorta to the RCA to the PDA, 01/14/2019. HISTORY OF PRESENT ILLNESS AND HOSPITAL COURSE: The patient is a 78-year-old diabetic woman who had a history of dyspnea on exertion elicited on a recent routine checkup. She describes some shortness of breath doing her routine house chores and yard work and in retrospect, she thinks for several months, she is tired more easily than she typically would. She denied any classic anginal symptoms, but a PET stress test showed mild lateral apical ischemia with preserved LVEF. Cardiac catheterization, however, showed severe 3-vessel coronary artery disease. She was admitted for revascularization. Post pump shortly after decannulation, she went into atrial fibrillation, but converted back to sinus rhythm with an amiodarone loading dose intravenously. She was maintained on IV amiodarone overnight and then switched to oral amiodarone on postoperative day #1. She had recurrence of atrial fibrillation prompting reinstitution of IV amiodarone and she had several episodes of going in and out of atrial fibrillation or flutter in sinus rhythm ultimately leading to the decision to anticoagulate her with Eliquis in spite of her having finally maintained a sinus rhythm. There were some considerable issues with adequate mobilization and the initial anticipation was that she would require inpatient rehabilitation prior to going home. However, her level of activity did improve some and she has a very supportive family, so she is now being discharged to home. She is to resume her home dose of Actos, allopurinol, p.r.n. Xanax, indomethacin, Myrbetriq and p.r.n. Lasix and meclizine. She is being sent home with a prescription for Lopressor 12.5 mg b.i.d. and an amiodarone taper with 200 mg two tablets p.o. t.i.d. for 2 weeks, 2 b.i.d. for 2 weeks and then one tablet b.i.d. She will be sent home on Eliquis 5 mg b.i.d. with the anticipation that, if she remains in sinus rhythm after a month, that will be stopped. She has been written a prescription for Vicodin as needed for pain. Job ID: [id number]
[2019-01-22] MEDS: Guaifenesin DM 100-10/5 ML UDCUP PO PRN (05:50)
[2019-01-22] MEDS: Aspirin Chewable 81 MG TAB PO SCH (09:04)
[2019-01-22] MEDS: Multivitamin W/ Minerals 1 TAB PO SCH (09:04)
[2019-01-22] MEDS: Furosemide 40 MG TAB PO SCH (09:04)
[2019-01-22] MEDS: Potassium Chloride 10 MEQ TAB PO SCH (09:04)
[2019-01-22] MEDS: Docusate 100 MG CAP PO SCH (09:04)
[2019-01-22] MEDS: Amiodarone 200 MG TAB PO SCH (09:05)
[2019-01-22] MEDS: Allopurinol 100 MG TAB PO SCH (09:05)
[2019-01-22] MEDS: Apixaban 5 MG TAB PO SCH (09:05)
[2019-01-22] MEDS: Calcium Carbonate + Vit D 1 TAB PO SCH (09:05)
[2019-01-22] MEDS: Iron Polysaccharides Complex 150 MG CAP PO SCH (09:05)
[2019-01-22] MEDS: Brimonidine Tartrate 0.2% Ophth Soln 5 ml Bottle EA EYE SCH (09:06)
[2019-01-22] MEDS: Timolol 0.5% Ophth Soln 5 ml Bottle EA EYE SCH (09:06)
[2019-01-22] MEDS: Pioglitazone HCl 15 MG TAB PO SCH (09:07)
[2019-01-22] MEDS: Metoprolol Tartrate 25 MG TAB PO SCH (09:07)
--- NOTE | 2019-01-22 09:45 | PDOC.CPN ---
- Subjective Date: 01/22/19 Time: 09:45 Interval history: The pt seen and examined. No overnight events. No cardiac complaints. - Objective Allergies/Adverse Reactions: Allergies Allergy/AdvReac Type Severity Reaction Status Date / Time No Known Allergies Allergy Unverified 01/13/19 10:48 Visit Medications: Current Medications Hydrocodone Bitart/Acetaminophen ([place] 5/325) 1 tab PO Q4H PRN PRN Reason: Moderate Pain (4-6) Last Admin: 01/22/19 02:43 Dose: 1 tab Hydrocodone Bitart/Acetaminophen ([place] 5/325) 2 tab PO Q4H PRN PRN Reason: Severe Pain (7-10) Last Admin: 01/16/19 15:07 Dose: 2 tab Al Hydroxide/Mg Hydroxide (Maalox) 30 ml PO Q4H PRN PRN Reason: Indigestion Last Admin: 01/20/19 18:22 Dose: 30 ml Albuterol/Ipratropium (Duoneb) 3 ml NEB [id number] PRN PRN Reason: SHORTNESS OF BREATH Allopurinol (Zyloprim) 100 mg PO DAILY [facility] Last Admin: 01/22/19 09:05 Dose: 100 mg Alprazolam (Xanax) 0.25 mg PO TIDPRN PRN PRN Reason: Anxiety Last Admin: 01/20/19 21:38 Dose: 0.25 mg Amiodarone HCl (Cordarone) 200 mg PO TID [facility] Stop: 01/28/19 21:01 Last Admin: 01/22/19 09:05 Dose: 200 mg Apixaban (Eliquis) 5 mg PO BID [facility] Last Admin: 01/22/19 09:05 Dose: 5 mg Artificial Tears (Tears Naturale) 1 drop EA EYE PRN PRN PRN Reason: Dry Eyes Aspirin (Aspirin Chewable) 81 mg PO DAILY [facility] Last Admin: 01/22/19 09:04 Dose: 81 mg Atorvastatin Calcium (Lipitor) 20 mg PO HS [facility] Last Admin: 01/21/19 20:37 Dose: 20 mg Bisacodyl (Dulcolax) 10 mg PO Q12H PRN PRN Reason: Constipation Last Admin: 01/21/19 10:46 Dose: 10 mg Bisacodyl (Dulcolax) 10 mg ID Q12H PRN PRN Reason: Constipation Last Admin: 01/21/19 13:02 Dose: 10 mg Brimonidine Tartrate (Alphagan 0.2% Ophth Soln) 1 drop EA EYE BID [facility] Last Admin: 01/22/19 09:06 Dose: Not Given Calcium/Vitamin D (Caltrate 600 + Vit D) 2 tab PO BID [facility] Last Admin: 01/22/19 09:05 Dose: 2 tab Dextrose/Water (Dextrose 50%) 25 gm SLOW IVP PRN PRN PRN Reason: Hypoglycemia Diphenhydramine HCl (Benadryl) 25 mg PO Q6H PRN PRN Reason: Itching & Insomnia or Flo Chris Docusate Sodium (Colace) 100 mg PO BID [facility] Last Admin: 01/22/19 09:04 Dose: 100 mg Furosemide (Lasix) 40 mg PO DAILY-[facility] Last Admin: 01/22/19 09:04 Dose: 40 mg Glucagon (Glucagon) 1 mg IM PRN PRN PRN Reason: Hypoglycemia Guaifenesin/Dextromethorphan (Robitussin Dm) 15 ml PO Q4H PRN PRN Reason: Cough Last Admin: 01/22/19 05:50 Dose: 15 ml Dextrose/Water (D5w) 1,000 mls @ 0 mls/hr IV .Q0M PRN PRN Reason: Hypoglycemia Indomethacin (Indocin) 25 mg PO BID PRN PRN Reason: LEG PAIN Last Admin: 01/20/19 15:12 Dose: 25 mg Insulin Human Lispro (Humalog) 0 units SC .MODERATE SLIDING SC PRN PRN Reason: Moderate Correctional Scale Iron/Minerals/Multivitamins (Theragran M) 1 tab PO DAILY [facility] Last Admin: 01/22/19 09:04 Dose: 1 tab Meclizine HCl (Antivert) 12.5 mg PO BID PRN PRN Reason: Vertigo Metoprolol Tartrate (Lopressor) 12.5 mg PO BID [facility] Last Admin: 01/22/19 09:07 Dose: 12.5 mg Mineral Oil (Fleet Mineral Oil) 133 ml ID DAILYPRN PRN PRN Reason: Constipation Last Admin: 01/21/19 13:45 Dose: 133 ml Mirabegron (Myrbetriq Er) 50 mg PO QAM [facility] Last Admin: 01/22/19 09:04 Dose: 50 mg Nitroglycerin (Nitrostat) 0.4 mg SL Q5MIN PRN PRN Reason: Chest Pain Ondansetron HCl (Zofran) 4 mg IVP Q6H PRN PRN Reason: Nausea/Vomiting Last Admin: 01/14/19 19:53 Dose: 4 mg Pantoprazole Sodium (Protonix) 40 mg PO DAILY [facility] Last Admin: 01/22/19 09:04 Dose: 40 mg Pioglitazone HCl (Actos) 7.5 mg PO DAILY [facility] Last Admin: 01/22/19 09:07 Dose: 7.5 mg Polysaccharide Iron Complex (Niferex) 150 mg PO BID-[facility] Last Admin: 01/22/19 09:05 Dose: 150 mg Potassium Chloride (Klor-Con 10) 10 meq PO BID-[facility] Last Admin: 01/22/19 09:04 Dose: 10 meq Senna (Senokot) 1 tab PO HS [facility] Last Admin: 01/21/19 20:39 Dose: 1 tab Sodium Chloride (Flush - Normal Saline) 10 ml IVF Q12HR [facility] Last Admin: 01/22/19 09:05 Dose: 10 ml Throat Lozenges (Cepastat Lozenges) 1 elisabeth PO PRN PRN PRN Reason: Sore Throat Last Admin: 01/17/19 15:07 Dose: 1 elisabeth Timolol Maleate (Timoptic 0.5% Ophth Soln) 1 drop EA EYE BID [facility] Last Admin: 01/22/19 09:06 Dose: 1 drop Zolpidem Tartrate (Ambien) 5 mg PO HSPRN PRN PRN Reason: Insomnia Vital Signs & Weight: Vital Signs Temp Pulse Resp BP BP Pulse Ox 01/22/19 09:06 82 01/22/19 07:50 97.7 F 82 18 115/57 L 97 01/22/19 04:00 97.9 F 74 17 119/56 L 99 01/22/19 02:45 82 120/67 Weight 246 lb - Physical Exam General: alert & oriented x3 Neck: supple neck Cardiac: regular rate and rhythm, S1/S2 Lungs: clear to auscultation, decreased breath sounds Neuro: cranial nerve 2-12 intact Skin: clear Musculoskeletal: decreased range of motion - Labs Result Diagrams: 01/19/19 05:07 01/19/19 05:07 - Telemetry Sinus rhythms and dysrhythmias: sinus rhythm - Assessment/Plan Assessment/Plan: 1. CAD with s/p CABG x5 on 01/14/2019 with HARTMAN-LAD, RGSV-1st OM, RGSV-diag, RGSV-RCA and PDA - stable with Metoprolol, ASA 81mg, and Lipitor 2. Post-op Afib - s/p Afib with RVR on 01/14/2019 and 01/16/2019; converted back to SR around 0200 on 01/19/2019; Remains in SR with Metoprolol 12.5mg BID; Amiodarone PO 200mg TID (started on 01/15/2019) with titration q 2wks. Cont. Eliquis 5mg BID for 1 month and d/c if she is in SR. 3. HTN - stable with Metoprolol 12.5mg BID and Lasix 40mg PO qd. 3. HLD - On Lipitor 20mg 4. DM type 2 - 5. IBS MAR reviewed * plan to tx to rehab. Pt. seen and eval. by me. terri zabala with the A/P by the HOSPITAL SOCIAL WORKER. She is doing well s/p CABG. Chest clear. RRR. To rehab. when a bad is available. mack
[2019-01-22 13:32] VITALS: BP 114/53; TEMP 97.8
[2019-01-29] MEDS ORDERED: Amiodarone 200 MG TAB PO SCH (09:00)
[2019-02-12] MEDS ORDERED: Amiodarone 200 MG TAB PO SCH (09:00)
== END 2019-01-22 13:11 | DRG 236 ==
LOC: SURG A 01-14 05:55 → CCU 01-14 15:22 → 2NO 01-18 19:47
PROVIDERS: ADMIT Thoracic Surgery (Cardiothoracic Vascular Surgery); ATTEND Thoracic Surgery (Cardiothoracic Vascular Surgery)
PROC: 02100Z9 Bypass Coronary Artery, One Artery from Left Internal Mammary, Open Approach (ICD-10-PCS; principal; 2019-01-14)
PROC: 021309W Bypass Coronary Artery, Four or More Arteries from Aorta with Autologous Venous Tissue, Open Approach (ICD-10-PCS; 2019-01-14)
PROC: 06BQ4ZZ Excision of Left Saphenous Vein, Percutaneous Endoscopic Approach (ICD-10-PCS; 2019-01-14)
PROC: 5A1221Z Performance of Cardiac Output, Continuous (ICD-10-PCS; 2019-01-14)
PROC: 3E033XZ Introduction of Vasopressor into Peripheral Vein, Percutaneous Approach (ICD-10-PCS; 2019-01-14)
DX: I25.10 Atherosclerotic heart disease of native coronary artery without angina pectoris (principal); E87.2 Acidosis; Z68.41 Body mass index [BMI] 40.0-44.9, adult; I48.92 Unspecified atrial flutter; I10 Essential (primary) hypertension; E11.9 Type 2 diabetes mellitus without complications; E66.9 Obesity, unspecified; K21.9 Gastro-esophageal reflux disease without esophagitis; K44.9 Diaphragmatic hernia without obstruction or gangrene; M19.041 Primary osteoarthritis, right hand; M19.042 Primary osteoarthritis, left hand; M17.12 Unilateral primary osteoarthritis, left knee; D12.6 Benign neoplasm of colon, unspecified; E78.5 Hyperlipidemia, unspecified; I99.8 Other disorder of circulatory system; K58.9 Irritable bowel syndrome, unspecified; Z96.652 Presence of left artificial knee joint; I95.9 Hypotension, unspecified; Z90.710 Acquired absence of both cervix and uterus; Z79.899 Other long term (current) drug therapy; I48.0 Paroxysmal atrial fibrillation; F41.9 Anxiety disorder, unspecified
CPT/HCPCS: 36415; 36416; 36430; 71045; 71046; 80048; 82805; 85025; 85027; 85610; 85730; 86850; 86900; 86901; 93005; 93010; 93798; 94002; J0282; J0690; J1100; J1160; J1265; J1642; J1644; J1650; J1815; J1885; J1940; J2001; J2150; J2250; J2405; J2440; J2720; J3010; J3370; J3475; J3480; J3490; J7050; J7070; P9045; P9047; S0017

== ENCOUNTER 2019-01-13 10:35 | Outpatient (CLI) | payer MEDICARE, BC ==
--- NOTE | 2019-01-13 11:57 | RAD ---
EXAM: Chest 2 views: HISTORY: Preoperative radiograph COMPARISON: None. FINDINGS: There is a normal-sized cardiomediastinal silhouette. There is no evidence of consolidation, mass, or pleural effusion. Degenerative changes are seen in the spine. IMPRESSION: No evidence of acute cardiopulmonary disease
--- NOTE | 2019-01-14 17:18 | EKG ---
Test Reason : Blood Pressure : / mmHG Vent. Rate : 088 BPM Atrial Rate : 088 BPM P-R Int : 144 ms QRS Dur : 120 ms QT Int : 368 ms P-R-T Axes : 055 000 037 degrees QTc Int : 445 ms Normal sinus rhythm Right bundle branch block Possible Lateral infarct , age undetermined Abnormal ECG Confirmed by JOSE ROBERTO CALI ([id number]) on 01/14/2019 5:18:00 PM Referred By: DAV Confirmed By:JOSE ROBERTO CALI
== END 2019-01-13 10:36 | disposition home or self-care (01) ==
LOC: LABBT 10:35
PROVIDERS: ATTEND Thoracic Surgery (Cardiothoracic Vascular Surgery)
DX: Z01.818 Encounter for other preprocedural examination (principal); I25.10 Atherosclerotic heart disease of native coronary artery without angina pectoris
CPT/HCPCS: 71046; 93005; 93010

== ENCOUNTER → 2022-09-06 | Day surgery (SDC) | payer MEDICARE, BC ==
[2022-09-05 09:25] VITALS: BMI 35.6
[~2022-09-06] MED LIST: Heparin 10,000 UNITS/ 10 ML VIAL ONE; Iopamidol 370 76% 100 ML VIAL ONE; Lidocaine 1% (PF) 30 ML VIAL ONE; Midazolam HCl 2 mg/2 ml Vial ONE; Nitroglycerin 50 MG/250 ML BOT 0 ML ONE; Verapamil 5 MG/2 ML VIAL ONE
[2022-09-06 11:26] LABS: #Eosinphils 0.2 thou/uL (0.0-0.7); #Lymphocytes 0.9 thou/uL (1.20-3.40); #Monocytes 0.3 thou/uL (0.11-0.59); #Neutrophils 1.8 thou/uL (1.40-6.50); %Basophils 1.2 % (0.0-1.0); %Eosinophils 5.4 % (0.0-10.0); %Lymphocytes 27.5 % (21.0-51.0); %Monocytes 8.2 % (0.0-10.0); %Neutrophils 57.7 % (42.0-75.0); Hemoglobin 12.4 g/dL (12.0-16.0); Mean Corpuscular HGB CONC 33.1 g/dL (32.0-36.0); Mean Corpuscular Hemoglobin 33.8 pg (27.0-31.0); Mean Platelet Volume 9.5 fL (7.4-10.4); Platelet Count 136 10x3/uL (130-400); Red Blood Cell (RBC) Count 3.66 mill/uL (4.20-5.40); White Blood Cell (WBC) Count 3.2 10x3/uL (4.8-10.8)
[2022-09-06 13:00] LABS: INR-International Normal Ratio 1.1; Prothrombin Time 14.4 sec (12.0-14.7)
[2022-09-06 13:46] LABS: Anion Gap 15 mmol/L (10-20); BUN (Urea Nitrogen) 19 mg/dL (9.8-20.1); Calc. Creatinine Clearance 94 mL/min (70-130); Calcium 9.1 mg/dL (7.8-10.44); Carbon Dioxide 24 mmol/L (23-31); Chloride 106 mmol/L (98-107); Estimated GFR 87; Glucose 91 mg/dL (83-110); Potassium 3.8 mmol/L (3.5-5.1); Sodium 141 mmol/L (136-145)
== END | disposition home or self-care (01) ==
LOC: CCL 09:44
PROVIDERS: ATTEND Internal Medicine Cardiovascular Disease
PROC: 4A023N7 Measurement of Cardiac Sampling and Pressure, Left Heart, Percutaneous Approach (ICD-10-PCS; principal; 2022-09-06)
PROC: B2111ZZ Fluoroscopy of Multiple Coronary Arteries using Low Osmolar Contrast (ICD-10-PCS; 2022-09-06)
PROC: B2181ZZ Fluoroscopy of Left Internal Mammary Bypass Graft using Low Osmolar Contrast (ICD-10-PCS; 2022-09-06)
PROC: B2131ZZ Fluoroscopy of Multiple Coronary Artery Bypass Grafts using Low Osmolar Contrast (ICD-10-PCS; 2022-09-06)
DX: I25.10 Atherosclerotic heart disease of native coronary artery without angina pectoris (principal); T82.857A Stenosis of other cardiac prosthetic devices, implants and grafts, initial encounter; I25.82 Chronic total occlusion of coronary artery; I10 Essential (primary) hypertension; E78.00 Pure hypercholesterolemia, unspecified; I73.9 Peripheral vascular disease, unspecified; I87.2 Venous insufficiency (chronic) (peripheral); I48.0 Paroxysmal atrial fibrillation; Z79.02 Long term (current) use of antithrombotics/antiplatelets; Z79.82 Long term (current) use of aspirin; Z79.84 Long term (current) use of oral hypoglycemic drugs; Z79.899 Other long term (current) drug therapy; Y71.3 Surgical instruments, materials and cardiovascular devices (including sutures) associated with adverse incidents
CPT/HCPCS: 85025; 85610; 93459; 99152; 99153; C1725; C1769; J1644; J2001; J2250; Q9967

== ENCOUNTER → 2025-03-08 | Day surgery (SDC) | payer BC, MEDICARE ==
[2025-03-07 09:49] VITALS: BMI 34.3
[~2025-03-08] MED LIST changes: +Bacitracin Zinc Ointment 30 gm TUBE ONE; +CEFAZOLIN 2 GM VIAL ONE; -Heparin 10,000 UNITS/ 10 ML VIAL ONE; -Iopamidol 370 76% 100 ML VIAL ONE; -Lidocaine 1% (PF) 30 ML VIAL ONE; +Lidocaine 1% PF 5 ML VIAL ONE; -Midazolam HCl 2 mg/2 ml Vial ONE; -Nitroglycerin 50 MG/250 ML BOT 0 ML ONE; +Ondansetron PF 4 MG/2 ML Vial ONE; +PHENYLEPHRINE-NS 100 MCG/ML 10 ML SYRINGE ONE; +PROPOFOL 20 ML ONE; -Verapamil 5 MG/2 ML VIAL ONE; +fentaNYL PF 100 MCG/2 ML SYRINGE ONE
[2025-03-08 06:55] LABS: #Basophils Less than 0.03 10x3/uL (0.0-0.2); #Eosinophils 0.15 10x3/uL (0.0-0.7); #Monocytes 0.46 10x3/uL (0.11-0.59); #Neutrophils 4.00 10x3/uL (1.40-6.50); %Basophils 0.4 % (0.0-1.0); %Eosinophils 2.8 % (0.0-10.0); %Lymphocytes 14.2 % (21.0-51.0); %Monocytes 8.5 % (0.0-10.0); %Neutrophils 73.7 % (42.0-75.0); Hematocrit 35.4 % (36.0-47.0); Hemoglobin 11.2 g/dL (12.0-16.0); Mean Corpuscular Hemoglobin 31.5 pg (27.0-31.0); Mean Corpuscular Volume 99.4 fL (78.0-98.0); Platelet Count 122 10x3/uL (130-400); Red Blood Cell (RBC) Count 3.56 mill/uL (4.20-5.40); White Blood Cell (WBC) Count 5.42 10x3/uL (4.8-10.8)
== END ==
LOC: SDC 06:02
PROVIDERS: ATTEND Orthopaedic Surgery Hand Surgery
PROC: 0RGV04Z Fusion of Left Metacarpophalangeal Joint with Internal Fixation Device, Open Approach (ICD-10-PCS; principal; 2025-03-08)
PROC: 0JBF0ZZ Excision of Left Upper Arm Subcutaneous Tissue and Fascia, Open Approach (ICD-10-PCS; 2025-03-08)
PROC: 0LB80ZZ Excision of Left Hand Tendon, Open Approach (ICD-10-PCS; 2025-03-08)
DX: S63.243A Subluxation of distal interphalangeal joint of left middle finger, initial encounter (principal); S63.242A Subluxation of distal interphalangeal joint of right middle finger, initial encounter; M67.442 Ganglion, left hand; M18.0 Bilateral primary osteoarthritis of first carpometacarpal joints; M10.9 Gout, unspecified; I10 Essential (primary) hypertension; E11.9 Type 2 diabetes mellitus without complications; E78.00 Pure hypercholesterolemia, unspecified; Z98.41 Cataract extraction status, right eye; Z98.42 Cataract extraction status, left eye; Z90.89 Acquired absence of other organs; Z90.710 Acquired absence of both cervix and uterus; Z79.82 Long term (current) use of aspirin; Z79.02 Long term (current) use of antithrombotics/antiplatelets; X58.XXXA Exposure to other specified factors, initial encounter
CPT/HCPCS: 24076; 26160; 26860; 73140; 85025; 93005; A6223; C1713; J0665; J1100; J2405; J2704; 88304; 93010